=== PATIENT | female | born 1945 | race Caucasian/White ===

== ENCOUNTER → 2017-09-15 | Outpatient (CLI) | payer MEDICARE ==
--- NOTE | 2017-09-15 16:50 | US ---
EXAMINATION TYPE: US venous doppler duplex LE LT DATE OF EXAM: 09/15/2017 4:27 PM COMPARISON: NONE CLINICAL HISTORY: Left Lower Ext, R22.41 Swelling. SIDE PERFORMED: left TECHNIQUE: The lower extremity deep venous system is examined utilizing real time linear array sonog braden with graded compression, doppler sonography and color-flow sonography. VESSELS IMAGED: External Iliac Vein (EIV) Common Femoral Vein Deep Femoral Vein Greater Saphenous Vein * Femoral Vein Popliteal Vein Small Saphenous Vein * Proximal Calf Veins (* superficial vessels) Patient of large body habitus with moderate leg swelling, technically difficult study. Right Leg: Negative for DVT Left Leg: Negative for DVT IMPRESSION: Within the limits of the exam there is no evidence of deep venous thrombosis in both legs .
== END | disposition home or self-care (01) ==
LOC: RADUSWWP 16:00
PROVIDERS: ATTEND Family Medicine
DX: R22.41 Localized swelling, mass and lump, right lower limb (principal)

== ENCOUNTER → 2017-10-09 | Outpatient (CLI) | payer MEDICARE ==
--- NOTE | 2017-10-09 15:30 | US ---
Left Leg: LOWER EXTREMITY VENOUS INSUFFICIENCY SIDE PERFORMED: Left 1) Color flow is present and patency is documented in the following vessels. No DVT or SVT is noted . EIV Common Femoral Vein Deep Femoral Vein Femoral Vein Popliteal Vein Greater Saph Vein Upper Small Saph Vein Grayscale, color doppler, spectral doppler imaging performed of the deep veins of the left lower extr emity. There is normal flow, compressibility, vascular waveforms. 2) There is venous reflux noted at the following venous levels: Deep femoral vein Mid and Dist femoral vein Mid popiteal vein Small saphenous vein IMPRESSION: 1. No sonographic evidence of deep or superficial venous thrombosis within the left lower extremity. 2. Venous reflux noted within the deep femoral vein, mid and distal femoral vein, mid popliteal vein and small saphenous vein.
== END | disposition home or self-care (01) ==
LOC: RADUSWWP 13:50
PROVIDERS: ATTEND Family Medicine
DX: I87.2 Venous insufficiency (chronic) (peripheral) (principal); R22.42 Localized swelling, mass and lump, left lower limb
CPT/HCPCS: 93923

== ENCOUNTER 2017-12-01 10:01 | Day surgery (SDC) | payer MEDICARE ==
[2017-11-28 12:13] VITALS: BMI 35.2
[~2017-12-01 10:01] MED LIST: LACTATED RINGERS 1,000 ML IV SCH
[2017-12-01 10:22] VITALS: TEMP 98.5
[2017-12-01] MEDS ORDERED: PROPOFOL 10 MG/ML 20 ML VIAL IV ONE (11:05)
[2017-12-01] MEDS ORDERED: HYDROmorphone (PF) 1 MG/ML ONE (11:05)
[2017-12-01] MEDS ORDERED: IV FLUID CONTINUATION 1,000 ML IV ONE (11:18)
--- NOTE | 2017-12-01 11:20 | P.PCN ---
Date of Procedure: 12/01/17 Procedure(s) Performed: BRIEF HISTORY: Patient is a 71-year-old, pleasant, female, scheduled for an upper endoscopy as a part of evaluation of intermittent dysphagia to solids for the last 6 months duration. She is hence scheduled for an upper endoscopy with possible dilation. PROCEDURE PERFORMED: Esophagogastroduodenoscopy with dilation. PREOPERATIVE DIAGNOSIS: Progressive dysphagia to solids for the last 6 months duration. IV sedation per anesthesia. PROCEDURE: After informed consent was obtained, the patient was brought into the endoscopy unit. IV sedation was administered by Anesthesia under continuous monitoring. Initially the Olympus GIF-140 video endoscope was inserted into the mouth. Esophagus intubated without any difficulty. It was gradually advanced into the stomach and duodenum and carefully examined. The bulb and the second part of the duodenum appeared normal. The scope at this time was withdrawn to the stomach, adequately insufflated with air, and upon careful examination, mucosa of the antrum, body, cardia and the fundus appeared normal. The scope was then withdrawn into the esophagus. The GE junction was located at 39 cm from the incisors. Small hiatal hernia noted. There was a distal esophageal stricture identified and this was dilated using 12 and 13.5 mm TTS balloon for 60 seconds. There are multiple linear erosions or ulcerations in the distal esophagus consistent with LA grade B reflux esophagitis. Rest of the esophagus appeared normal and the patient tolerated the procedure well. T IMPRESSION: 1. Distal esophageal stricture status post balloon dilation using 12 and 13.5 mm TTS balloon as described above. 2. Multiple linear erosions or ulcerations in the distal esophagus consistent with LA grade D reflux esophagitis. RECOMMENDATIONS: The findings of this examination were discussed with the patient as well as a family. She'll be started on Prilosec 20 mg twice daily half hour before breakfast and dinnertime and follow antireflux measures. She' ll be seen in the office in 6 weeks..
[2017-12-01] MEDS ORDERED: KETOROLAC 30 MG/ML 1 ML VIAL IVP ONE (12:00)
[2017-12-01 12:10] VITALS: RESP 18
[2017-12-01] MEDS ORDERED: LABETALOL 5 MG/ML VIAL MDV IVP PRN (12:28)
[2017-12-01] MEDS ORDERED: LABETALOL 5 MG/ML VIAL MDV IVP ONE (12:38)
[2017-12-01 12:42] VITALS: BP 162/82; PULSE 68
== END 2017-12-01 12:56 | disposition home or self-care (01) ==
LOC: ORWHC2ENDO 10:01
PROVIDERS: ATTEND Internal Medicine Gastroenterology
DX: K22.2 Esophageal obstruction (principal); K44.9 Diaphragmatic hernia without obstruction or gangrene; K21.0 Gastro-esophageal reflux disease with esophagitis
CPT/HCPCS: 43249; J1885; J1170; J2704; C1726; 45386

== ENCOUNTER 2019-12-04 08:35 | Day surgery (SDC) | payer MEDICARE ==
[2019-11-29 15:37] VITALS: BMI 34.3
[2019-12-04 08:51] VITALS: TEMP 96.7
[2019-12-04] MEDS ORDERED: PROPOFOL 10 MG/ML 20 ML VIAL IV ONE (09:28)
--- NOTE | 2019-12-04 09:47 | P.PCN ---
Date of Procedure: 12/04/19 Procedure(s) Performed: BRIEF HISTORY: Patient is a 73-year-old pleasant white female scheduled for an elective colonoscopy as a part of screening for colorectal neoplasia. PROCEDURE PERFORMED: Colonoscopy with biopsy. PREOPERATIVE DIAGNOSIS: Screening for colon cancer. IV sedation per Anesthesia. PROCEDURE: After informed consent was obtained, the patient, was brought into the endoscopy unit. IV sedation was administered by Anesthesia under continuous monitoring. Digital rectal examination was normal. Initially the Olympus CF-160 flexible video colonoscope was then inserted in the rectum, gradually advanced into the cecum without any difficulty. Careful examination was performed as the scope was gradually being withdrawn. Ileocecal valve and the appendiceal orifice were visualized and appeared normal. Prep was excellent. Mucosa of the cecum, ascending colon, transverse colon, descending colon appeared normal. In the sigmoid colon at 22 cm from the anal was a focal area of colitis or mucosal erythema and friability noted and biopsies were done from this area to rule out sigmoid diverticulitis. Rest of the, sigmoid colon, and rectum appeared normal. On the differential diverticulosis seen. Retroflexion was performed in the rectum and no lesions were seen. The patient tolerated the procedure well. IMPRESSION: 1. Focal area of of colitis noted in the sigmoid colon with mucosal friability and erythema status post biopsy to rule out acute diverticulitis 2. Left sided diverticulosis RECOMMENDATIONS: Findings of this examination were discussed with the patient as well as a family. She was advised to follow with the biopsy results. She can have a repeat screening colonoscopy in 10 years.
[2019-12-04 09:50] VITALS: RESP 16
[2019-12-04 10:07] VITALS: BP 149/85; PULSE 87
== END 2019-12-04 10:28 | disposition home or self-care (01) ==
LOC: ORWHC2ENDO 08:35
PROVIDERS: ATTEND Internal Medicine Gastroenterology
DX: Z12.11 Encounter for screening for malignant neoplasm of colon (principal); K52.9 Noninfective gastroenteritis and colitis, unspecified; K57.30 Diverticulosis of large intestine without perforation or abscess without bleeding; K21.9 Gastro-esophageal reflux disease without esophagitis; Z79.899 Other long term (current) drug therapy; Z97.2 Presence of dental prosthetic device (complete) (partial)
CPT/HCPCS: 88305; 45380; J2704

== ENCOUNTER 2022-05-15 15:46 | Emergency (ER) | payer MEDICARE ==
[2022-05-15] MEDS ORDERED: ACETAMINOPHEN TAB 500 MG TAB PO STA (16:05)
--- NOTE | 2022-05-15 16:11 | ED ---
General Adult HPI - General Chief complaint: Shortness of Breath Stated complaint: Fever Time Seen by Provider: 05/15/22 15:49 Source: patient, RN notes reviewed Mode of arrival: EMS Limitations: no limitations - History of Present Illness Initial comments: Patient is a pleasant 76-year-old female presenting to the emergency department with concerns with fever. Onset was this morning. Patient does have mild left abdominal discomfort over the past couple of days. Patient does feel short of breath. Patient took Tylenol around 10 AM. No cough. No congestion. No history of similar symptoms previously. No dysuria. - Related Data Home Medications Medication Instructions Recorded Confirmed Fish Oil/Dha/Epa [Fish Oil 1,200 1 cap PO DAILY 11/28/17 05/15/22 mg Fish Oil] Multivitamins, Thera [Multivitamin 1 tab PO DAILY 11/28/17 05/15/22 (formulary)] Cholecalciferol [Vitamin D3 (25 50 mcg PO DAILY 05/15/22 05/15/22 Mcg = 1000 Iu)] Cyanocobalamin [Vitamin B-12] 500 mcg PO DAILY 05/15/22 05/15/22 Ibuprofen/Acetaminophen [Advil 2 tab PO BID PRN 05/15/22 05/15/22 Dual Action 250Mg-125Mg] Omeprazole Magnesium [PriLOSEC OTC] 20 mg PO DAILY 05/15/22 05/15/22 Previous Rx's Medication Instructions Recorded Nitrofurantoin Monohyd/M-Cryst 100 mg PO Q12HR #14 cap 05/15/22 [Macrobid] Allergies Allergy/AdvReac Type Severity Reaction Status Date / Time No Known Allergies Allergy Verified 05/15/22 15:55 Review of Systems ROS Statement: Those systems with pertinent positive or pertinent negative responses have been documented in the HPI. ROS Other: All systems not noted in ROS Statement are negative. Constitutional: Denies: fever Eyes: Denies: eye pain ENT: Denies: ear pain Respiratory: Reports: as per HPI. Denies: cough Cardiovascular: Denies: chest pain Endocrine: Reports: fatigue Gastrointestinal: Reports: as per HPI Genitourinary: Denies: dysuria Musculoskeletal: Denies: back pain Skin: Denies: rash Past Medical History Past Medical History: GERD/Reflux, Osteoarthritis (OA) Additional Past Medical History / Comment(s): hx of dysphagia History of Any Multi-Drug Resistant Organisms: None Reported Past Surgical History: Hysterectomy, Orthopedic Surgery Additional Past Surgical History / Comment(s): Colonoscopy, egd with dilation Past Anesthesia/Blood Transfusion Reactions: Previous Problems w/ Anesthesia Additional Past Anesthesia/Blood Transfusion Reaction / Comment(s): states "my B /P went high after my EGD" Past Psychological History: No Psychological Hx Reported Past Alcohol Use History: Rare Past Drug Use History: None Reported - Past Family History Father Family Medical History: Cancer Additional Family Medical History / Comment(s): Prostate CA General Exam Limitations: no limitations General appearance: alert, in no apparent distress Head exam: Present: normocephalic Eye exam: Present: normal appearance ENT exam: Present: normal exam Neck exam: Present: normal inspection Respiratory exam: Present: normal lung sounds bilaterally Cardiovascular Exam: Present: regular rate, normal rhythm GI/Abdominal exam: Present: soft, tenderness (Mild left lower quadrant tenderness to palpation). Absent: distended Extremities exam: Present: normal inspection. Absent: pedal edema, calf tenderness Neurological exam: Present: alert Psychiatric exam: Present: normal affect, normal mood Skin exam: Present: normal color Course Vital Signs 05/15/22 05/15/22 05/15/22 15:51 18:04 19:28 Temperature 99.9 F H 98.8 F 98.7 F Pulse Rate 105 H 92 82 Respiratory 22 20 16 Rate Blood Pressure 144/76 140/85 135/83 O2 Sat by Pulse 96 96 96 Oximetry EKG Findings - EKG Results: EKG: interpreted by ERMD (Left axis. Septal Q waves.), sinus rhythm, normal ST/T Medical Decision Making - Medical Decision Making Patient reevaluated and feeling much better. Patient family updated on results and need for follow-up. - Lab Data Result diagrams: 05/15/22 16:28 05/15/22 16:28 Lab Results 05/15/22 05/15/22 05/15/22 Range/Units 16:28 16:28 16:28 WBC 13.5 H (3.8-10.6) k/uL RBC 3.97 (3.80-5.40) m/uL Hgb 12.7 (11.4-16.0) gm/dL Hct 36.4 (34.0-46.0) % MCV 91.8 (80.0-100.0) fL MCH 32.0 (25.0-35.0) pg MCHC 34.9 (31.0-37.0) g/dL RDW 12.3 (11.5-15.5) % Plt Count 209 (150-450) k/uL MPV 8.7 Neutrophils % 93 % Lymphocytes % 2 % Monocytes % 3 % Eosinophils % 0 % Basophils % 0 % Neutrophils # 12.5 H (1.3-7.7) k/uL Lymphocytes # 0.3 L (1.0-4.8) k/uL Monocytes # 0.5 (0-1.0) k/uL Eosinophils # 0.0 (0-0.7) k/uL Basophils # 0.0 (0-0.2) k/uL PT (9.0-12.0) sec INR (<1.2) APTT (22.0-30.0) sec D-Dimer (<0.60) mg/L FEU Sodium 134 L (137-145) mmol/L Potassium 3.2 L (3.5-5.1) mmol/L Chloride 103 (98-107) mmol/L Carbon Dioxide 22 (22-30) mmol/L Anion Gap 9 mmol/L BUN 17 (7-17) mg/dL Creatinine 0.77 (0.52-1.04) mg/dL Est GFR (CKD-EPI)AfAm 87 (>60 ml/min/1.73 sqM) Est GFR (CKD-EPI)NonAf 76 (>60 ml/min/1.73 sqM) Glucose 160 H (74-99) mg/dL Plasma Lactic Acid Elias 1.2 (0.7-2.0) mmol/L Calcium 8.1 L (8.4-10.2) mg/dL Total Bilirubin 0.8 (0.2-1.3) mg/dL AST 24 (14-36) U/L ALT 24 (4-34) U/L Alkaline Phosphatase 95 (38-126) U/L Troponin I (0.000-0.034) ng/mL NT-Pro-B Natriuret Pep pg/mL Total Protein 6.0 L (6.3-8.2) g/dL Albumin 3.2 L (3.5-5.0) g/dL Urine Color Urine Appearance (Clear) Urine pH (5.0-8.0) Ur Specific [place] (1.001-1.035) Urine Protein (Negative) Urine Glucose (UA) (Negative) Urine Ketones (Negative) Urine Blood (Negative) Urine Nitrite (Negative) Urine Bilirubin (Negative) Urine Urobilinogen (<2.0) mg/dL Ur Leukocyte Esterase (Negative) Urine RBC (0-5) /hpf Urine WBC (0-5) /hpf Urine WBC Clumps (None) /hpf Urine Mucus (None) /hpf Coronavirus (PCR) (Not Detectd) Influenza Type A RNA (Not Detectd) Influenza Type B (PCR) (Not Detectd) 05/15/22 05/15/22 05/15/22 Range/Units 16:28 16:28 16:28 WBC (3.8-10.6) k/uL RBC (3.80-5.40) m/uL Hgb (11.4-16.0) gm/dL Hct (34.0-46.0) % MCV (80.0-100.0) fL MCH (25.0-35.0) pg MCHC (31.0-37.0) g/dL RDW (11.5-15.5) % Plt Count (150-450) k/uL MPV Neutrophils % % Lymphocytes % % Monocytes % % Eosinophils % % Basophils % % Neutrophils # (1.3-7.7) k/uL Lymphocytes # (1.0-4.8) k/uL Monocytes # (0-1.0) k/uL Eosinophils # (0-0.7) k/uL Basophils # (0-0.2) k/uL PT (9.0-12.0) sec INR (<1.2) APTT (22.0-30.0) sec D-Dimer (<0.60) mg/L FEU Sodium (137-145) mmol/L Potassium (3.5-5.1) mmol/L Chloride (98-107) mmol/L Carbon Dioxide (22-30) mmol/L Anion Gap mmol/L BUN (7-17) mg/dL Creatinine (0.52-1.04) mg/dL Est GFR (CKD-EPI)AfAm (>60 ml/min/1.73 sqM) Est GFR (CKD-EPI)NonAf (>60 ml/min/1.73 sqM) Glucose (74-99) mg/dL Plasma Lactic Acid Elias (0.7-2.0) mmol/L Calcium (8.4-10.2) mg/dL Total Bilirubin (0.2-1.3) mg/dL AST (14-36) U/L ALT (4-34) U/L Alkaline Phosphatase (38-126) U/L Troponin I 0.021 (0.000-0.034) ng/mL NT-Pro-B Natriuret Pep 1020 pg/mL Total Protein (6.3-8.2) g/dL Albumin (3.5-5.0) g/dL Urine Color Urine Appearance (Clear) Urine pH (5.0-8.0) Ur Specific [place] (1.001-1.035) Urine Protein (Negative) Urine Glucose (UA) (Negative) Urine Ketones (Negative) Urine Blood (Negative) Urine Nitrite (Negative) Urine Bilirubin (Negative) Urine Urobilinogen (<2.0) mg/dL Ur Leukocyte Esterase (Negative) Urine RBC (0-5) /hpf Urine WBC (0-5) /hpf Urine WBC Clumps (None) /hpf Urine Mucus (None) /hpf Coronavirus (PCR) (Not Detectd) Influenza Type A RNA Not Detected (Not Detectd) Influenza Type B (PCR) Not Detected (Not Detectd) 05/15/22 05/15/22 05/15/22 Range/Units 16:28 18:06 19:33 WBC (3.8-10.6) k/uL RBC (3.80-5.40) m/uL Hgb (11.4-16.0) gm/dL Hct (34.0-46.0) % MCV (80.0-100.0) fL MCH (25.0-35.0) pg MCHC (31.0-37.0) g/dL RDW (11.5-15.5) % Plt Count (150-450) k/uL MPV Neutrophils % % Lymphocytes % % Monocytes % % Eosinophils % % Basophils % % Neutrophils # (1.3-7.7) k/uL Lymphocytes # (1.0-4.8) k/uL Monocytes # (0-1.0) k/uL Eosinophils # (0-0.7) k/uL Basophils # (0-0.2) k/uL PT 10.3 (9.0-12.0) sec INR 0.9 (<1.2) APTT 23.3 (22.0-30.0) sec D-Dimer 5.15 H (<0.60) mg/L FEU Sodium (137-145) mmol/L Potassium (3.5-5.1) mmol/L Chloride (98-107) mmol/L Carbon Dioxide (22-30) mmol/L Anion Gap mmol/L BUN (7-17) mg/dL Creatinine (0.52-1.04) mg/dL Est GFR (CKD-EPI)AfAm (>60 ml/min/1.73 sqM) Est GFR (CKD-EPI)NonAf (>60 ml/min/1.73 sqM) Glucose (74-99) mg/dL Plasma Lactic Acid Elias (0.7-2.0) mmol/L Calcium (8.4-10.2) mg/dL Total Bilirubin (0.2-1.3) mg/dL AST (14-36) U/L ALT (4-34) U/L Alkaline Phosphatase (38-126) U/L Troponin I (0.000-0.034) ng/mL NT-Pro-B Natriuret Pep pg/mL Total Protein (6.3-8.2) g/dL Albumin (3.5-5.0) g/dL Urine Color Yellow Urine Appearance Cloudy H (Clear) Urine pH 6.0 (5.0-8.0) Ur Specific [place] 1.026 (1.001-1.035) Urine Protein 2+ H (Negative) Urine Glucose (UA) Negative (Negative) Urine Ketones Trace H (Negative) Urine Blood Small H (Negative) Urine Nitrite Negative (Negative) Urine Bilirubin Negative (Negative) Urine Urobilinogen 2.0 (<2.0) mg/dL Ur Leukocyte Esterase Large H (Negative) Urine RBC 8 H (0-5) /hpf Urine WBC >182 H (0-5) /hpf Urine WBC Clumps Many H (None) /hpf Urine Mucus Rare H (None) /hpf Coronavirus (PCR) Not Detected (Not Detectd) Influenza Type A RNA (Not Detectd) Influenza Type B (PCR) (Not Detectd) - Radiology Data Radiology results: report reviewed (CT chest negative for pulmonary embolism. No airspace disease. CT abdomen and pelvis reveals no acute process) Interpreted by me: Chest x-ray does not reveal acute abnormality Disposition Clinical Impression: Urinary tract infection Disposition: HOME SELF-CARE Condition: Stable Instructions (If sedation given, give patient instructions): Fever in Adults (ED), Urinary Tract Infection in Women (ED) Additional Instructions: Prescription sent to pharmacy. Please do follow-up to primary care physician in the next day or 2 for recheck. Return for uncontrolled fever, difficulty breathing, pain, worsening symptoms or other concerns. Prescriptions: Nitrofurantoin Monohyd/M-Cryst [Macrobid] 100 mg PO Q12HR #14 cap Is patient prescribed a controlled substance at d/c from ED?: No Referrals: Mellissa Evans DO [Primary Care Provider] - 1-2 days Time of Disposition: 20:38
[2022-05-15 16:49] LABS: Basophils % (A) 0 %; Eosinophils % (A) 0 %; HCT 36.4 % (34.0-46.0); HGB 12.7 gm/dL (11.4-16.0); Lymphocytes # (A) 0.3 k/uL (1.0-4.8); Lymphocytes % (A) 2 %; MCHC 34.9 g/dL (31.0-37.0); MCV 91.8 fL (80.0-100.0); Mean Platelet Volume 8.7; Monocytes # (A) 0.5 k/uL (0-1.0); Monocytes % (A) 3 %; Neutrophils # (A) 12.5 k/uL (1.3-7.7); Neutrophils % (A) 93 %; Platelet Count 209 k/uL (150-450); RBC 3.97 m/uL (3.80-5.40); RDW 12.3 % (11.5-15.5); WBC 13.5 k/uL (3.8-10.6)
--- NOTE | 2022-05-15 16:57 | XR ---
EXAMINATION TYPE: XR chest 2V DATE OF EXAM: 05/15/2022 COMPARISON: NONE HISTORY: Fever and short of breath TECHNIQUE: 2 views FINDINGS: There is no heart failure nor confluent pneumonic infiltrate. Costophrenic angles are clear . Ureters atheromatous. Bony thorax is intact. IMPRESSION: Atheromatous aorta. No active cardiopulmonary disease. Normal heart.
[2022-05-15 17:03] LABS: Albumin 3.2 g/dL (3.5-5.0); Calcium 8.1 mg/dL (8.4-10.2); Potassium 3.2 mmol/L (3.5-5.1); Total Bilirubin 0.8 mg/dL (0.2-1.3)
[2022-05-15 18:43] LABS: INR 0.9 (<1.2); Partial Thromboplastin Time 23.3 sec (22.0-30.0); Prothrombin Time 10.3 sec (9.0-12.0)
--- NOTE | 2022-05-15 19:41 | CT ---
EXAMINATION TYPE: CT angio chest DATE OF EXAM: 05/15/2022 COMPARISON: None HISTORY: SOB and Elevated D-dimer CT DLP: 1756.3 mGycm Automated exposure control for dose reduction was used. CONTRAST: Performed with IV Contrast, patient injected with 100cc mL of Isovue 370. There are Three-D postprocessed images. The lungs are clear of consolidation. No evidence of a pulmon marcio mass. No mediastinal adenopathy. There are no hilar masses. There is normal contrast opacificatio n of the pulmonary arteries. No filling defect. Thoracic aorta is intact. No aneurysm. The thoracic s pine is intact. There is L1 anterior wedging 20% which appears old. No evidence of rib fracture. Shou lder joints are intact. There is minimal linear density at the lung bases consistent with subsegmenta l atelectasis. IMPRESSION: No evidence of pulmonary embolism.
--- NOTE | 2022-05-15 19:50 | CT ---
EXAMINATION TYPE: CT abdomen pelvis w con DATE OF EXAM: 05/15/2022 COMPARISON: 10/11/2014 HISTORY: Fever CT DLP: 1756.3 mGycm Automated exposure control for dose reduction was used. CONTRAST: Performed with IV Contrast, patient injected with 100cc mL of Isovue 370. Images obtained from the diaphragm to the floor the pelvis with the IV contrast. The lung bases show mild subsegmental atelectasis in the left lower lobe. No pleural effusion. Heart size is normal. No pericardial effusion. Liver spleen stomach pancreas appear intact. Gallbladder is intact. The bile duct are not dilated. There is 3 cm low-density left adrenal mass. Kidneys show satisfactory contrast opacification. No hyd ronephrosis. There is 1 cm cortical cyst upper pole left kidney. Ureters are not dilated. No retroper itoneal adenopathy. Appendix is lateral and appears normal. There is large lower anterior abdominal w all ventral hernia containing multiple loops of bowel. There is no inguinal hernia. No free fluid in the pelvis. There are multiple sigmoid diverticula. No diverticulitis. The lumbar vertebra show normal alignment. There is T12 compression deformity with 20% wedging that a ppears old. There is atheromatous changes in the abdominal aorta and the branches. There is no mesent olayinka edema. No ascites or free air. No sign of a bowel obstruction. IMPRESSION: Large ventral hernia without change. Colonic diverticulosis without diverticulitis. Normal appendix.
[2022-05-15] MEDS ORDERED: POTASSIUM CHLORIDE ER 20 MEQ TAB.ER PO STA (20:01)
[2022-05-15 20:27] LABS: Appearance,Urine Cloudy (Clear); Bilirubin,Urine Negative (Negative); Blood,Urine Small (Negative); Color,Urine Yellow; Glucose,Urine (UA) Negative (Negative); Ketones,Urine Trace (Negative); Leukocyte Esterase,Urine Large (Negative); Mucus,Urine Rare /hpf; Nitrite,Urine Negative (Negative); Protein,Urine 2+ (Negative); RBC,Urine 8 /hpf (0-5); Specific Gravity,Urine 1.026 (1.001-1.035); WBC,Urine >182 /hpf (0-5)
[2022-05-15] MEDS ORDERED: cefTRIAXone IN SWFI 1,000 MG/10 ML SYRINGE IVP STA (20:36)
[2022-05-15 20:57] VITALS: BP 132/80; PULSE 84; RESP 18; TEMP 98.4
== END 2022-05-15 20:57 | disposition home or self-care (01) ==
LOC: EC 15:46
DX: N39.0 Urinary tract infection, site not specified (principal); M19.90 Unspecified osteoarthritis, unspecified site; K21.9 Gastro-esophageal reflux disease without esophagitis; F17.290 Nicotine dependence, other tobacco product, uncomplicated; Z79.83 Long term (current) use of bisphosphonates; Z79.1 Long term (current) use of non-steroidal anti-inflammatories (NSAID); Z20.822 Contact with and (suspected) exposure to COVID-19; Z79.899 Other long term (current) drug therapy
CPT/HCPCS: 99285; 96374; 36415; 93005; 85379; 83880; 80053; 83605; 84484; 85025; 85610; 85730; 81001; 87040; 87086; 87502; 87635; 71046; 71275; 74177; J0696; Q9967; 87077; 87186

== ENCOUNTER 2024-01-05 10:16 | Inpatient (IN) | payer MEDICARE ==
[2024-01-05 12:02] LABS: Basophils % (A) 0 %; Eosinophils % (A) 0 %; HCT 39.2 % (34.0-46.0); HGB 13.6 gm/dL (11.4-16.0); Lymphocytes # (A) 0.8 k/uL (1.0-4.8); Lymphocytes % (A) 8 %; MCH 31.7 pg (25.0-35.0); MCHC 34.8 g/dL (31.0-37.0); MCV 91.3 fL (80.0-100.0); Mean Platelet Volume 6.6; Monocytes # (A) 0.6 k/uL (0-1.0); Monocytes % (A) 6 %; Neutrophils # (A) 8.6 k/uL (1.3-7.7); Neutrophils % (A) 84 %; Platelet Count 279 k/uL (150-450); RBC 4.29 m/uL (3.80-5.40); RDW 12.3 % (11.5-15.5); WBC 10.2 k/uL (3.8-10.6)
[2024-01-05 12:13] LABS: INR 0.9 (<1.2); Prothrombin Time 10.2 sec (10.0-12.5)
[2024-01-05 12:15] LABS: ALT 18 U/L (4-34); AST 31 U/L (14-36); African American GFR (CKD) >90 (>60 ml/min/1.73 sqM); Albumin 4.1 g/dL (3.5-5.0); Alkaline Phosphatase 61 U/L (38-126); Anion Gap 8 mmol/L; Blood Urea Nitrogen 9 mg/dL (7-17); Calcium 8.8 mg/dL (8.4-10.2); Carbon Dioxide 26 mmol/L (22-30); Chloride 81 mmol/L (98-107); Glucose 124 mg/dL (74-99); Non-African American GFR(CKD) 89 (>60 ml/min/1.73 sqM); Potassium 3.4 mmol/L (3.5-5.1); Total Bilirubin 0.8 mg/dL (0.2-1.3); Total Protein 6.7 g/dL (6.3-8.2)
[2024-01-05 12:22] LABS: Sodium 115 mmol/L (137-145)
[2024-01-05] MEDS: SODIUM CHLORIDE 0.9% 500 ML 500 ML IV STA (12:36)
--- NOTE | 2024-01-05 13:15 | CT ---
EXAMINATION TYPE: CT brain ty campos DATE OF EXAM: 01/05/2024 COMPARISON: None HISTORY: Ataxia, multiple falls, head injury. CT DLP: 1365.[address] of the brain was performed. The ventricles, basal cisterns and sulci overlying the cerebral convexities demonstrate mild enlargem ent. There is no evidence for intracranial hemorrhage or sulcal effacement. There is decreased attenuatio n about the periventricular white matter and deep white matter of both cerebral hemispheres, compatib le with chronic small vessel ischemia. No mass effects are seen. If symptoms persist consider MRI. Osseous calvarium is intact. Right frontal scalp hematoma. IMPRESSION: 1. Age related atrophic and chronic small vessel ischemic change without acute intracranial process seen at this time. CT Cervical Spine: Unenhanced CT of the cervical spine was performed with bone and soft tissue window settings submitted . Coronal and sagittal reconstruction is obtained. There is normal alignment and prevertebral soft tissues. No evidence for acute cervical fracture . Scattered degenerative disc disease and spondylosis. Biapical scarring. Patient motion limits portio ns of the study. IMPRESSION: 1. No evidence for acute fracture or subluxation of the cervical spine.
[2024-01-05 13:21] LABS: Appearance,Urine Clear (Clear); Bilirubin,Urine Negative (Negative); Blood,Urine Negative (Negative); Color,Urine Colorless; Glucose,Urine (UA) Negative (Negative); Ketones,Urine Negative (Negative); Leukocyte Esterase,Urine Negative (Negative); Nitrite,Urine Negative (Negative); Protein,Urine Negative (Negative); Specific Gravity,Urine 1.006 (1.001-1.035); Urobilinogen,Urine <2.0 mg/dL (<2.0)
--- NOTE | 2024-01-05 13:22 | CT ---
EXAMINATION TYPE: CT angio head neck DATE OF EXAM: 01/05/2024 COMPARISON: None HISTORY: Ataxia, multiple falls, head injury. No prior DLP 1365.[address] DLP: 411 mGycm CONTRAST: Performed with IV Contrast, patient injected with 65 mL of Isovue 370. Combination Contrast CTA cervical carotids and [place] CTA cervical carotids with 3-D recons truction Contrast CTA of the cervical carotids was performed 3-D reconstruction imaging obtained at a separate workstation. Right carotid system: Mild plaque is seen of the right common carotid artery. There is mild plaque a lso noted at the carotid bulb and proximal ICA. 50% diameter reduction suggested. ECA is patent. R ight vertebral artery appears unremarkable. Left carotid system: Mild plaque is seen of the left common carotid artery. There is mild plaque als o noted at the carotid bulb and proximal ICA. No significant diameter reduction. ECA is patent. Lef t vertebral artery appears unremarkable. IMPRESSION: 1. Bilateral carotid plaque disease. Right Internal carotid artery demonstrates approximate 50% diame ter reduction. CTA [place] with 3-D reconstruction Contrast CTA of the [place] was performed 3-D reconstruction imaging obtained at a separate workstation. Vertebrobasilar system as well as intracranial portions of the internal carotid arteries and their ma isabella tributaries are patent. I do not see evidence for sizable aneurysm or vascular malformation. Pl ease note MRI provides greater sensitivity and specificity. Visualized brain appears grossly unremar kable. IMPRESSION: 1. No siginificant abnormality. NASCET criteria was used in interpretation of this exam?
--- NOTE | 2024-01-05 14:16 | ED ---
General Adult HPI - General Chief complaint: Fall Stated complaint: Dizziness Time Seen by Provider: 01/05/24 10:20 Source: patient Mode of arrival: EMS - History of Present Illness Initial comments: 78 year old female presents to the emergency Department with multiple falls. Brandon sin states for the past week she has been extremely off balance. This led to a fall with head injury on Monday. Patient struck the right side of her face. She knows consciousness. She is not on blood thinners. Patient is experiencing a black eye. She denies headaches or visual changes. No vertiginous symptoms. Denies lightheadedness. Reports that her symptoms are worse upon standing. No chest pain or difficulty breathing. No recent medication changes. No history of similar. No other alleviating, visiting offing factors - Related Data Home Medications Medication Instructions Recorded Confirmed Cyanocobalamin [Vitamin B-12] 500 mcg PO DAILY 05/15/22 01/05/24 Citalopram Hydrobromide [CeleXA] 20 mg PO DAILY 01/05/24 01/05/24 Ibuprofen [Advil] 400 mg PO BID 01/05/24 01/05/24 Multivit-Min/FA/Lycopen/Lutein 1 tab PO DAILY 01/05/24 01/05/24 [Centrum Silver Tablet] Omeprazole 20 mg PO DAILY 01/05/24 01/05/24 Vitamin D3/Vitamin K2 (Mk4) 1 tab PO DAILY 01/05/24 01/05/24 [Vitamin K2 Plus D3 Tablet] Previous Rx's Medication Instructions Recorded Losartan [Cozaar] 50 mg PO DAILY #30 tab 01/08/24 amLODIPine [Norvasc] 10 mg PO DAILY #30 tab 01/08/24 Allergies Allergy/AdvReac Type Severity Reaction Status Date / Time No Known Allergies Allergy Verified 01/05/24 13:51 Review of Systems ROS Statement: Those systems with pertinent positive or pertinent negative responses have been documented in the HPI. ROS Other: All systems not noted in ROS Statement are negative. Past Medical History Past Medical History: GERD/Reflux, Osteoarthritis (OA) Additional Past Medical History / Comment(s): hx of dysphagia History of Any Multi-Drug Resistant Organisms: None Reported Past Surgical History: Hysterectomy, Orthopedic Surgery Additional Past Surgical History / Comment(s): Colonoscopy, egd with dilation Past Anesthesia/Blood Transfusion Reactions: Previous Problems w/ Anesthesia Additional Past Anesthesia/Blood Transfusion Reaction / Comment(s): states "my B/P went high after my EGD" Past Psychological History: Anxiety Smoking Status: Former smoker Past Alcohol Use History: Rare Past Drug Use History: None Reported - Past Family History Father Family Medical History: Cancer Additional Family Medical History / Comment(s): Prostate CA General Exam General appearance: alert, in no apparent distress Head exam: Present: normocephalic Eye exam: Present: PERRL, EOMI, other (ecchymosis around the right eye). Absent: scleral icterus, conjunctival injection, periorbital swelling ENT exam: Present: normal exam, mucous membranes moist Neck exam: Present: normal inspection. Absent: tenderness, meningismus, lymphadenopathy Respiratory exam: Present: normal lung sounds bilaterally. Absent: respiratory distress, wheezes, rales, rhonchi, stridor Cardiovascular Exam: Present: regular rate, normal rhythm, normal heart sounds. Absent: systolic murmur, diastolic murmur, rubs, gallop, clicks GI/Abdominal exam: Present: soft, normal bowel sounds. Absent: distended, tenderness, guarding, rebound, rigid Extremities exam: Present: normal inspection, full ROM, normal capillary refill. Absent: tenderness, pedal edema, joint swelling, calf tenderness Back exam: Present: normal inspection Neurological exam: Present: alert, oriented X3, CN II-XII intact Psychiatric exam: Present: normal affect, normal mood Skin exam: Present: warm, dry, intact, normal color. Absent: rash Course Vital Signs 01/05/24 01/05/24 01/05/24 10:19 10:28 12:00 Temperature 98.2 F Pulse Rate 83 Pulse Rate [ 85 Pulse Oximetery ] Respiratory 20 Rate Blood Pressure 169/94 Blood Pressure [Right Arm Standing] Blood Pressure 180/90 [Right Arm Supine] O2 Sat by Pulse 96 Oximetry 01/05/24 01/05/24 01/05/24 12:02 14:00 18:41 Temperature Pulse Rate 82 84 Pulse Rate [ 82 Pulse Oximetery ] Respiratory 20 20 Rate Blood Pressure 156/88 166/78 Blood Pressure 162/84 [Right Arm Standing] Blood Pressure [Right Arm Supine] O2 Sat by Pulse 98 98 Oximetry Procedures - Abie Protocol (Time Out) Nurse: Hanane Marques Medical Decision Making - Medical Decision Making Was pt. sent in by a medical professional or institution (, PA, TOOL SHAPER SET UP OPERATOR, urgent care, hospital, or skilled nursing...) When possible be specific @ -No Did you speak to anyone other than the patient for history (EMS, parent, family, police, friend...)? What history was obtained from this source @ -I spoke with the son for history Did you review nursing and triage notes (agree or disagree)? Why? @ -I reviewed and agree with nursing and triage notes Were old charts reviewed (outside hosp., previous admission, EMS record, old EKG, old radiological studies, urgent care reports/EKG's, skilled nursing records)? Report findings @ -No old charts were reviewed Differential Diagnosis (chest pain, altered mental status, abdominal pain women, abdominal pain men, vaginal bleeding, weakness, fever, dyspnea, syncope, headache, dizziness, GI bleed, back pain, seizure, CVA, palpatations, mental health, musculoskeletal)? @ -hypogylcemia, hyponatremia, mi, cva EKG interpreted by me (3pts min.). @ -yes and demonstrates sinus rhythm with rate of 80. AL interval 165. QRS 110. QTC of 434. No diffuse ST segment elevations or depressions X-rays interpreted by me (1pt min.). @ -yes and demonstrates no acute process CT interpreted by me (1pt min.). @ -yes and demonstrates no cva signs U/S interpreted by me (1pt. min.). @ -None done What testing was considered but not performed or refused? (CT, X-rays, U/S, labs)? Why? @ -None What meds were considered but not given or refused? Why? @ -None Did you discuss the management of the patient with other professionals (professionals i.e. , BRANDON, TOOL SHAPER SET UP OPERATOR, lab, RT, psych nurse, perinatal social worker, cullet crusher, teacher, fare enforcement officer, field nurse case manager)? Give summary @ -Spoke with Dr. Mahoney from nephrology. Also spoke with Dr. Keith for admission Was smoking cessation discussed for >3mins.? @ -No Was critical care preformed (if so, how long)? @ -No Were there social determinants of health that impacted care today? How? (Homelessness, low income, unemployed, alcoholism, drug addiction, transportation, low edu. Level, literacy, decrease access to med. care, [place] [facility], rehab)? @ -No Was there de-escalation of care discussed even if they declined (Discuss DNR or withdrawal of care, Hospice)? DNR status @ -No What co-morbidities impacted this encounter? (DM, HTN, Smoking, COPD, CAD, Cancer, CVA, ARF, Chemo, Hep., AIDS, mental health diagnosis, sleep apnea, morbid obesity)? @ -Hypertension Was patient admitted / discharged? Hospital course, mention meds given and route, prescriptions, significant lab abnormalities, going to OR and other pertinent info. @ -Upon arrival patient seen and evaluated in room 7. Thorough history and physical exam was performed. IV access was established. Laboratory studies were conducted. Laboratory studies do demonstrate a sodium of 115. CT brain and chest x-ray are negative. Results were discussed with the patient. She had been given a 500 cc fluid bolus. We will recheck a sodium at this time and discuss results with Dr. Mahoney. Patient will be admitted to Dr. Evans. Patient was agreeable to admission Undiagnosed new problem with uncertain prognosis? @ -No Drug Therapy requiring intensive monitoring for toxicity (Heparin, Nitro, Insulin, Cardizem)? @ -No Were any procedures done? @ -No Diagnosis/symptom? @ -Acute ataxia, multiple falls, acute hyponatremia Acute, or Chronic, or Acute on Chronic? @ -Acute Uncomplicated (without systemic symptoms) or Complicated (systemic symptoms)? @ -Complicated Side effects of treatment? @ -No Exacerbation, Progression, or Severe Exacerbation? @ -No Poses a threat to life or bodily function? How? (Chest pain, [place], [place], pneumonia, PE, COPD, DKA, ARF, appy, cholecystitis, CVA, Diverticulitis, Homicidal, Suicidal, threat to staff... and all critical care pts) @ -Yes as patient has profound hyponatremia - Lab Data Result diagrams: 01/07/24 02:35 01/08/24 07:36 Lab Results 01/05/24 01/05/24 01/05/24 Range/Units 11:46 11:46 11:46 WBC 10.2 (3.8-10.6) k/uL RBC 4.29 (3.80-5.40) m/uL Hgb 13.6 (11.4-16.0) gm/dL Hct 39.2 (34.0-46.0) % MCV 91.3 (80.0-100.0) fL MCH 31.7 (25.0-35.0) pg MCHC 34.8 (31.0-37.0) g/dL RDW 12.3 (11.5-15.5) % Plt Count 279 (150-450) k/uL MPV 6.6 Neutrophils % 84 % Lymphocytes % 8 % Monocytes % 6 % Eosinophils % 0 % Basophils % 0 % Neutrophils # 8.6 H (1.3-7.7) k/uL Lymphocytes # 0.8 L (1.0-4.8) k/uL Monocytes # 0.6 (0-1.0) k/uL Eosinophils # 0.0 (0-0.7) k/uL Basophils # 0.0 (0-0.2) k/uL PT 10.2 (10.0-12.5) sec INR 0.9 (<1.2) Sodium (137-145) mmol/L Potassium (3.5-5.1) mmol/L Chloride (98-107) mmol/L Carbon Dioxide (22-30) mmol/L Anion Gap mmol/L BUN (7-17) mg/dL Creatinine (0.52-1.04) mg/dL Est GFR (CKD-EPI)AfAm (>60 ml/min/1.73 sqM) Est GFR (CKD-EPI)NonAf (>60 ml/min/1.73 sqM) Glucose (74-99) mg/dL Calcium (8.4-10.2) mg/dL Total Bilirubin (0.2-1.3) mg/dL AST (14-36) U/L ALT (4-34) U/L Alkaline Phosphatase (38-126) U/L Troponin I (0.000-0.034) ng/mL Total Protein (6.3-8.2) g/dL Albumin (3.5-5.0) g/dL Urine Color Colorless Urine Appearance Clear (Clear) Urine pH 7.0 (5.0-8.0) Ur Specific [place] 1.006 (1.001-1.035) Urine Protein Negative (Negative) Urine Glucose (UA) Negative (Negative) Urine Ketones Negative (Negative) Urine Blood Negative (Negative) Urine Nitrite Negative (Negative) Urine Bilirubin Negative (Negative) Urine Urobilinogen <2.0 (<2.0) mg/dL Ur Leukocyte Esterase Negative (Negative) 01/05/24 01/05/24 Range/Units 11:46 11:46 WBC (3.8-10.6) k/uL RBC (3.80-5.40) m/uL Hgb (11.4-16.0) gm/dL Hct (34.0-46.0) % MCV (80.0-100.0) fL MCH (25.0-35.0) pg MCHC (31.0-37.0) g/dL RDW (11.5-15.5) % Plt Count (150-450) k/uL MPV Neutrophils % % Lymphocytes % % Monocytes % % Eosinophils % % Basophils % % Neutrophils # (1.3-7.7) k/uL Lymphocytes # (1.0-4.8) k/uL Monocytes # (0-1.0) k/uL Eosinophils # (0-0.7) k/uL Basophils # (0-0.2) k/uL PT (10.0-12.5) sec INR (<1.2) Sodium 115 L* (137-145) mmol/L Potassium 3.4 L (3.5-5.1) mmol/L Chloride 81 L (98-107) mmol/L Carbon Dioxide 26 (22-30) mmol/L Anion Gap 8 mmol/L BUN 9 (7-17) mg/dL Creatinine 0.58 (0.52-1.04) mg/dL Est GFR (CKD-EPI)AfAm >90 (>60 ml/min/1.73 sqM) Est GFR (CKD-EPI)NonAf 89 (>60 ml/min/1.73 sqM) Glucose 124 H (74-99) mg/dL Calcium 8.8 (8.4-10.2) mg/dL Total Bilirubin 0.8 (0.2-1.3) mg/dL AST 31 (14-36) U/L ALT 18 (4-34) U/L Alkaline Phosphatase 61 (38-126) U/L Troponin I 0.018 (0.000-0.034) ng/mL Total Protein 6.7 (6.3-8.2) g/dL Albumin 4.1 (3.5-5.0) g/dL Urine Color Urine Appearance (Clear) Urine pH (5.0-8.0) Ur Specific [place] (1.001-1.035) Urine Protein (Negative) Urine Glucose (UA) (Negative) Urine Ketones (Negative) Urine Blood (Negative) Urine Nitrite (Negative) Urine Bilirubin (Negative) Urine Urobilinogen (<2.0) mg/dL Ur Leukocyte Esterase (Negative) Disposition Clinical Impression: Fall, Blunt head trauma, Hyponatremia Disposition: ADMITTED IP TO THIS [facility] Condition: Stable Is patient prescribed a controlled substance at d/c from ED?: No Time of Disposition: 14:16 Decision to Admit Reason: Admit from EC Decision Date: 01/05/24 Decision Time: 14:16
[2024-01-05] MEDS ORDERED: NALOXONE 0.4 MG/ML 1 ML VIAL IV PRN (14:17)
[2024-01-05 17:17] LABS: Sodium 117 mmol/L (137-145)
[2024-01-05] MEDS: SODIUM CHLORIDE 0.9% 1,000 ML IV SCH (18:11)
[2024-01-05] MEDS: MELATONIN 5 MG TABLET PO SCH (22:34)
[2024-01-05] MEDS: IBUPROFEN 400 MG TAB PO PRN (22:35)
[2024-01-06 04:00] LABS: Basophils % (A) 0 %; Eosinophils # (A) 0.1 k/uL (0-0.7); Eosinophils % (A) 1 %; HCT 36.6 % (34.0-46.0); HGB 12.6 gm/dL (11.4-16.0); Lymphocytes # (A) 1.1 k/uL (1.0-4.8); Lymphocytes % (A) 12 %; MCH 32.4 pg (25.0-35.0); MCHC 34.5 g/dL (31.0-37.0); MCV 94.2 fL (80.0-100.0); Mean Platelet Volume 7.2; Monocytes # (A) 0.8 k/uL (0-1.0); Monocytes % (A) 9 %; Neutrophils # (A) 7.3 k/uL (1.3-7.7); Neutrophils % (A) 77 %; Platelet Count 254 k/uL (150-450); RBC 3.89 m/uL (3.80-5.40); RDW 12.9 % (11.5-15.5); WBC 9.5 k/uL (3.8-10.6)
[2024-01-06 04:11] LABS: African American GFR (CKD) >90 (>60 ml/min/1.73 sqM); Anion Gap 6 mmol/L; Blood Urea Nitrogen 8 mg/dL (7-17); Calcium 8.9 mg/dL (8.4-10.2); Carbon Dioxide 26 mmol/L (22-30); Chloride 87 mmol/L (98-107); Glucose 118 mg/dL (74-99); Non-African American GFR(CKD) 88 (>60 ml/min/1.73 sqM); Potassium 3.4 mmol/L (3.5-5.1)
[2024-01-06 04:30] LABS: Sodium 119 mmol/L (137-145)
[2024-01-06] MEDS: CYANOCOBALAMIN 500 MCG TAB PO SCH (08:22)
[2024-01-06] MEDS: PANTOPRAZOLE 40 MG TABLET PO SCH (08:22)
[2024-01-06] MEDS: CITALOPRAM HYDROBROMIDE 20 MG TAB PO SCH (08:22)
[2024-01-06] MEDS: LOSARTAN 50 MG TAB PO SCH (11:48)
[2024-01-06] MEDS: POTASSIUM CHLORIDE ER 20 MEQ TAB.ER PO STA (11:48)
--- NOTE | 2024-01-06 13:13 | P.NPCON ---
History of Present Illness - Reason for Consult Consult date: 01/06/24 hyponatremia - Chief Complaint Fall - History of Present Illness 78 year old female presents to the emergency Department with multiple falls. Patient states for the past week she has been extremely off balance. This led to a fall with head injury on Monday. Patient struck the right side of her face. She knows consciousness. She is not on blood thinners. Patient is experiencing a black eye. She denies headaches or visual changes. No vertiginous symptoms. Denies lightheadedness. Reports that her symptoms are worse upon standing. No chest pain or difficulty breathing. No recent med ication changes. No history of similar. No other alleviating, visiting offing factors. She does take hydrochlorothiazide at home as part of her BP medications. Has been eating and drinking well. Vital signs are stable. General: No acute distress. HEENT: Head exam is unremarkable. LUNGS: No acute distress. HEART: Rate and Rhythm are regular. ABDOMEN: Nontender. EXTREMITITES: No edema. Review of Systems Constitutional: Reports as per HPI Past Medical History Past Medical History: COPD, GERD/Reflux, Hypertension, Osteoarthritis (OA) Additional Past Medical History / Comment(s): hx of dysphagia History of Any Multi-Drug Resistant Organisms: None Reported Past Surgical History: Hysterectomy, Orthopedic Surgery Additional Past Surgical History / Comment(s): Colonoscopy, egd with dilation Past Anesthesia/Blood Transfusion Reactions: Previous Problems w/ Anesthesia Additional Past Anesthesia/Blood Transfusion Reaction / Comment(s): states "my B/P went high after my EGD" Past Psychological History: Anxiety Smoking Status: Former smoker Past Alcohol Use History: Rare Additional Past Alcohol Use History / Comment(s): Quit smoking 20 years ago Past Drug Use History: None Reported - Past Family History Father Family Medical History: Cancer Additional Family Medical History / Comment(s): Prostate CA Medications and Allergies Home Medications Medication Instructions Recorded Confirmed Type Cyanocobalamin [Vitamin B-12] 500 mcg PO DAILY 05/15/22 01/05/24 History Citalopram Hydrobromide [CeleXA] 20 mg PO DAILY 01/05/24 01/05/24 History Ibuprofen [Advil] 400 mg PO BID 01/05/24 01/05/24 History Losartan/Hydrochlorothiazide 1 tab PO DAILY 01/05/24 01/05/24 History [Hyzaar 100-25 Tablet] Multivit-Min/FA/Lycopen/Lutein 1 tab PO DAILY 01/05/24 01/05/24 History [Centrum Silver Tablet] Omeprazole 20 mg PO DAILY 01/05/24 01/05/24 History Vitamin D3/Vitamin K2 (Mk4) 1 tab PO DAILY 01/05/24 01/05/24 History [Vitamin K2 Plus D3 Tablet] Allergies Allergy/AdvReac Type Severity Reaction Status Date / Time No Known Allergies Allergy Verified 01/05/24 13:51 Physical Exam Vitals: Vital Signs Temp Pulse Pulse Resp BP BP BP 01/06/24 11:26 97.9 F 70 20 167/70 01/06/24 08:00 98 F 74 20 148/66 01/06/24 04:45 97.8 F 81 20 135/71 01/05/24 23:00 82 18 158/83 01/05/24 20:02 72 16 152/69 01/05/24 19:04 86 18 152/65 01/05/24 18:41 84 20 166/78 01/05/24 14:00 82 20 156/88 Pulse Ox 01/06/24 11:26 96 01/06/24 08:00 95 01/06/24 04:45 93 L 01/05/24 23:00 95 01/05/24 20:02 94 L 01/05/24 19:04 96 01/05/24 18:41 98 01/05/24 14:00 98 Intake and Output 01/05/24 01/06/24 01/06/24 22:59 06:59 14:59 Intake Total 240 Output Total 1150 Balance -1150 240 Intake: Oral 240 Output: Urine 1150 Other: Voiding Method External Catheter Bedside Commode # Voids 1 Weight 90.265 kg 84 kg Results - Lab Results Most recent lab results Calcium 8.9 mg/dL (8.4-10.2) 01/06/24 03:32 01/06/24 03:32 01/06/24 12:04 Assessment and Plan Assessment: 1. Hypovolemic hyponatremia related to thiazide use. Na 115-->119-->121 with IVF. Urine osmolality 275, urine sodium pending. 2. Fall with BHT due to hyponatremia 3. Essential HTN Plan: Discontinue HCTZ indefintely Consider amlodipine 5mg if needed for BP support Continue IVF 100cc/hr At goal sodium 127-129 by tomorrow 11am
--- NOTE | 2024-01-06 18:42 | P.HPIM ---
History of Present Illness H&P Date: 01/05/24 Chief Complaint: Dizziness/fall 78 year old female presents to the emergency Department with multiple falls. Patient states for the past week she has been extremely off balance. This led to a fall with head injury on Monday. Patient struck the right side of her face. She knows consciousness. She is not on blood thinners. Patient is experiencing a black eye. She denies headaches or visual changes. No vertiginous symptoms. Denies lightheadedness. Reports that her symptoms are worse upon standing. No chest pain or difficulty breathing. No recent medication changes. No history of similar. No other alleviating, visiting offing factors Blood work completed in ED reveals a WBC of 10.2, hemoglobin of 13.6 and platelet count of 279, sodium 115, potassium 3.4, BUNs/creatinine of 9/0.58 and blood glucose of 124, troponin of 0.018 UA is unremarkable EKG demonstrates sinus rhythm with rate of 80. [place] interval 165. QRS 110. QTC of 434. No diffuse ST segment elevations or depressions Review of Systems REVIEW OF SYSTEMS: CONSTITUTIONAL: No fever, no malaise, no fatigue. HEENT: No recent visual problems or hearing problems. Denied any sore throat. CARDIOVASCULAR: No chest pain, orthopnea, PND, no palpitations, no syncope. PULMONARY: No shortness of breath, no cough, no hemoptysis. GASTROINTESTINAL: No diarrhea, no nausea, no vomiting, no abdominal pain. NEUROLOGICAL: No headaches, no weakness, no numbness. HEMATOLOGICAL: Denies any bleeding or petechiae. GENITOURINARY: Denies any burning micturition, frequency, or urgency. MUSCULOSKELETAL/RHEUMATOLOGICAL: Denies any joint pain, swelling, or any muscle pain. ENDOCRINE: Denies any polyuria or polydipsia. The rest of the 14-point review of systems is negative. Past Medical History Past Medical History: GERD/Reflux, Osteoarthritis (OA) Additional Past Medical History / Comment(s): hx of dysphagia History of Any Multi-Drug Resistant Organisms: None Reported Past Surgical History: Hysterectomy, Orthopedic Surgery Additional Past Surgical History / Comment(s): Colonoscopy, egd with dilation Past Anesthesia/Blood Transfusion Reactions: Previous Problems w/ Anesthesia Additional Past Anesthesia/Blood Transfusion Reaction / Comment(s): states "my B/P went high after my EGD" Past Psychological History: Anxiety Smoking Status: Former smoker Past Alcohol Use History: Rare Past Drug Use History: None Reported - Past Family History Father Family Medical History: Cancer Additional Family Medical History / Comment(s): Prostate CA Medications and Allergies Home Medications Medication Instructions Recorded Confirmed Type Cyanocobalamin [Vitamin B-12] 500 mcg PO DAILY 05/15/22 01/05/24 History Citalopram Hydrobromide [CeleXA] 20 mg PO DAILY 01/05/24 01/05/24 History Ibuprofen [Advil] 400 mg PO BID 01/05/24 01/05/24 History Losartan/Hydrochlorothiazide 1 tab PO DAILY 01/05/24 01/05/24 History [Hyzaar 100-25 Tablet] Multivit-Min/FA/Lycopen/Lutein 1 tab PO DAILY 01/05/24 01/05/24 History [Centrum Silver Tablet] Omeprazole 20 mg PO DAILY 01/05/24 01/05/24 History Vitamin D3/Vitamin K2 (Mk4) 1 tab PO DAILY 01/05/24 01/05/24 History [Vitamin K2 Plus D3 Tablet] Allergies Allergy/AdvReac Type Severity Reaction Status Date / Time No Known Allergies Allergy Verified 01/05/24 13:51 Physical Exam Vitals: Vital Signs Temp Pulse Pulse Resp BP BP BP 01/05/24 12:02 82 162/84 01/05/24 12:00 85 180/90 01/05/24 10:28 98.2 F 01/05/24 10:19 83 20 169/94 Pulse Ox 01/05/24 12:02 01/05/24 12:00 01/05/24 10:28 01/05/24 10:19 96 Intake and Output 01/05/24 01/05/24 01/05/24 06:59 14:59 22:59 Other: Weight 90.265 kg Head exam: Present: normocephalic Eye exam: Present: PERRL, EOMI, other (ecchymosis around the right eye). Absent: scleral icterus, conjunctival injection, periorbital swelling ENT exam: Present: normal exam, mucous membranes moist Neck exam: Present: normal inspection. Absent: tenderness, meningismus, lymphadenopathy Respiratory exam: Present: normal lung sounds bilaterally. Absent: respiratory distress, wheezes, rales, rhonchi, stridor Cardiovascular Exam: Present: regular rate, normal rhythm, normal heart sounds. Absent: systolic murmur, diastolic murmur, rubs, gallop, clicks GI/Abdominal exam: Present: soft, normal bowel sounds. Absent: distended, tenderness, guarding, rebound, rigid Extremities exam: Present: normal inspection, full ROM, normal capillary refill. Absent: tenderness, pedal edema, joint swelling, calf tenderness Back exam: Present: normal inspection Neurological exam: Present: alert, oriented X3, CN II-XII intact Psychiatric exam: Present: normal affect, normal mood Skin exam: Present: warm, dry, intact, normal color. Absent: rash Results CBC & Chem 7: 01/06/24 03:32 01/06/24 12:04 Labs: Abnormal Lab Results - Last 24 Hours (Table) 01/05/24 01/05/24 Range/Units 11:46 11:46 Neutrophils # 8.6 H (1.3-7.7) k/uL Lymphocytes # 0.8 L (1.0-4.8) k/uL Sodium 115 L* (137-145) mmol/L Potassium 3.4 L (3.5-5.1) mmol/L Chloride 81 L (98-107) mmol/L Glucose 124 H (74-99) mg/dL Assessment and Plan Assessment: 1. Critical hyponatremia --Patient received IV normal saline bolus in ED; has been placed on a continuous normal saline drip at rate of 100 cc an hour; will monitor sodium levels every 6 hours -Order serum and urine osmolality and serum and urine sodium levels -Nephrology is consulted 2. Hypokalemia; supplemented in ED; will monitor electrolytes 3. Falls/debility versus related to electrolyte imbalance; supplemented as indicated above; we will consult PT/OT 4. Hypertension; patient takes losartan/hydrochlorothiazide 100-25 mg daily; we will discontinue hydrochlorothiazide; continue with losartan 100 mg daily 5. Vitamin D deficiency; continue current home vitamin D supplement 6. Vitamin B12 deficiency; vitamin B12 500 mcg daily 7. Gastroesophageal reflux disease; omeprazole 20 mg daily 8. Depression; Celexa 20 mg daily DVT prophylaxis; SCDs CODE STATUS; full code
--- NOTE | 2024-01-06 18:43 | P.PN ---
Subjective Progress Note Date: 01/06/24 78 year old female presents to the emergency Department with multiple falls. Patient states for the past week she has been extremely off balance. This led to a fall with head injury on Monday. Patient struck the right side of her face. She knows consciousness. She is not on blood thinners. Patient is experiencing a black eye. She denies headaches or visual changes. No vertiginous symptoms. Denies lightheadedness. Reports that her symptoms are worse upon standing. No chest pain or difficulty breathing. No recent medication changes. No history of similar. No other alleviating, visiting offing factors Blood work completed in ED reveals a WBC of 10.2, hemoglobin of 13.6 and platelet count of 279, sodium 115, potassium 3.4, BUNs/creatinine of 9/0.58 and blood glucose of 124, troponin of 0.018 UA is unremarkable EKG demonstrates sinus rhythm with rate of 80. VT interval 165. QRS 110. QTC of 434. No diffuse ST segment elevations or depressions Objective - Vital Signs Vital signs: Vital Signs Temp 98 F 01/06/24 08:00 Pulse 74 01/06/24 08:00 Resp 20 01/06/24 08:00 BP 148/66 01/06/24 08:00 Pulse Ox 95 01/06/24 08:00 FiO2 Intake & Output 01/05/24 01/06/24 01/06/24 18:59 06:59 18:59 Intake Total 240 Output Total 1150 Balance -1150 240 Weight 90.265 kg 84 kg Intake: Oral 240 Output: Urine 1150 Other: Voiding Method Bedside Commode - Exam Head exam: Present: normocephalic Eye exam: Present: PERRL, EOMI, other (ecchymosis around the right eye). Absent: scleral icterus, conjunctival injection, periorbital swelling ENT exam: Present: normal exam, mucous membranes moist Neck exam: Present: normal inspection. Absent: tenderness, meningismus, lymphadenopathy Respiratory exam: Present: normal lung sounds bilaterally. Absent: respiratory distress, wheezes, rales, rhonchi, stridor Cardiovascular Exam: Present: regular rate, normal rhythm, normal heart sounds. Absent: systolic murmur, diastolic murmur, rubs, gallop, clicks GI/Abdominal exam: Present: soft, normal bowel sounds. Absent: distended, tenderness, guarding, rebound, rigid Extremities exam: Present: normal inspection, full ROM, normal capillary refill. Absent: tenderness, pedal edema, joint swelling, calf tenderness Neurological exam: Present: alert, oriented X3, CN II-XII intact Skin exam: Present: warm, dry, intact, normal color. Absent: rash - Labs CBC & Chem 7: 01/06/24 03:32 01/06/24 12:04 Labs: Abnormal Lab Results - Last 24 Hours (Table) 01/05/24 01/05/24 01/05/24 Range/Units 11:46 11:46 16:48 Neutrophils # 8.6 H (1.3-7.7) k/uL Lymphocytes # 0.8 L (1.0-4.8) k/uL Sodium 115 L* 117 L* (137-145) mmol/L Potassium 3.4 L (3.5-5.1) mmol/L Chloride 81 L (98-107) mmol/L Glucose 124 H (74-99) mg/dL Osmolality 251 L (275-295) mOsm/kg Urine Osmolality (400-1100) mOsm/kg 01/05/24 01/05/24 01/06/24 Range/Units 18:10 18:57 03:32 Neutrophils # (1.3-7.7) k/uL Lymphocytes # (1.0-4.8) k/uL Sodium 119 L* 119 L* (137-145) mmol/L Potassium 3.4 L (3.5-5.1) mmol/L Chloride 87 L (98-107) mmol/L Glucose 118 H (74-99) mg/dL Osmolality (275-295) mOsm/kg Urine Osmolality 272 L (400-1100) mOsm/kg Assessment and Plan Assessment: 1. Critical hyponatremia --Patient received IV normal saline bolus in ED; has been placed on a continuous normal saline drip at rate of 100 cc an hour; will monitor sodium levels every 6 hours -Order serum and urine osmolality and serum and urine sodium levels -Nephrology is consulted 2. Hypokalemia; supplemented in ED; will monitor electrolytes 3. Falls/debility versus related to electrolyte imbalance; supplemented as indicated above; we will consult PT/OT 4. Hypertension; patient takes losartan/hydrochlorothiazide 100-25 mg daily; we will discontinue hydrochlorothiazide; continue with losartan 100 mg daily 5. Vitamin D deficiency; continue current home vitamin D supplement 6. Vitamin B12 deficiency; vitamin B12 500 mcg daily 7. Gastroesophageal reflux disease; omeprazole 20 mg daily 8. Depression; Celexa 20 mg daily DVT prophylaxis; SCDs CODE STATUS; full code
[2024-01-07 03:42] LABS: Basophils % (A) 0 %; Eosinophils # (A) 0.1 k/uL (0-0.7); Eosinophils % (A) 1 %; HCT 36.5 % (34.0-46.0); HGB 12.2 gm/dL (11.4-16.0); Lymphocytes # (A) 1.2 k/uL (1.0-4.8); Lymphocytes % (A) 15 %; MCH 31.1 pg (25.0-35.0); MCHC 33.3 g/dL (31.0-37.0); MCV 93.1 fL (80.0-100.0); Mean Platelet Volume 7.3; Monocytes # (A) 0.6 k/uL (0-1.0); Monocytes % (A) 8 %; Neutrophils # (A) 5.6 k/uL (1.3-7.7); Neutrophils % (A) 72 %; Platelet Count 242 k/uL (150-450); RBC 3.92 m/uL (3.80-5.40); RDW 12.6 % (11.5-15.5); WBC 7.8 k/uL (3.8-10.6)
[2024-01-07 03:55] LABS: African American GFR (CKD) >90 (>60 ml/min/1.73 sqM); Anion Gap 8 mmol/L; Blood Urea Nitrogen 10 mg/dL (7-17); Calcium 8.2 mg/dL (8.4-10.2); Carbon Dioxide 18 mmol/L (22-30); Chloride 97 mmol/L (98-107); Glucose 106 mg/dL (74-99); Non-African American GFR(CKD) >90 (>60 ml/min/1.73 sqM); Sodium 123 mmol/L (137-145)
--- NOTE | 2024-01-07 11:57 | P.PN ---
Subjective Progress Note Date: 01/07/24 Patient seen in follow-up for hyponatremia. Doing well and no new complaints. Sodium up to 126 this morning. Vital signs are stable. General: No acute distress. HEENT: Head exam is unremarkable. LUNGS: No acute distress. HEART: Rate and Rhythm are regular. ABDOMEN: Nontender. EXTREMITITES: No edema. Objective - Vital Signs Vital signs: Vital Signs Temp 97.8 F 01/07/24 11:33 Pulse 76 01/07/24 11:33 Resp 20 01/07/24 11:33 BP 182/75 01/07/24 11:33 Pulse Ox 97 01/07/24 11:33 FiO2 Intake & Output 01/06/24 01/07/24 01/07/24 18:59 06:59 18:59 Intake Total 476 60 Output Total 850 200 Balance 476 -850 -140 Weight 86.7 kg Intake: Oral 476 60 Output: Urine 850 200 Other: Voiding Method Bedside Commode # Voids 1 - Labs CBC & Chem 7: 01/07/24 02:35 01/07/24 07:26 Labs: Abnormal Lab Results - Last 24 Hours (Table) 01/06/24 01/06/24 01/06/24 Range/Units 10:00 12:04 19:42 Sodium 121 L 122 L (137-145) mmol/L Chloride (98-107) mmol/L Carbon Dioxide (22-30) mmol/L Glucose (74-99) mg/dL Calcium (8.4-10.2) mg/dL Ur Random Sodium <20 L (40-220) mmol/L 01/07/24 01/07/24 01/07/24 Range/Units 02:35 02:35 07:26 Sodium 123 L 122 L 126 L (137-145) mmol/L Chloride 97 L (98-107) mmol/L Carbon Dioxide 18 L (22-30) mmol/L Glucose 106 H (74-99) mg/dL Calcium 8.2 L (8.4-10.2) mg/dL Ur Random Sodium (40-220) mmol/L Assessment and Plan Assessment: 1. Hypovolemic hyponatremia related to thiazide use. Na 115-->119-->121 with IVF. Urine osmolality 275, urine sodium pending. 2. Fall with BHT due to hyponatremia 3. Essential HTN Plan: Discontinue HCTZ indefintely Will add amlodipine 5mg for hypertension. Continue IVF 100cc/hr At goal sodium 132-134 by tomorrow 11am
[2024-01-07] MEDS: amLODIPine 5 MG TAB PO SCH (12:25)
--- NOTE | 2024-01-07 14:56 | P.PN ---
Subjective Progress Note Date: 01/07/24 78 year old female presents to the emergency Department with multiple falls. Patient states for the past week she has been extremely off balance. This led to a fall with head injury on Monday. Patient struck the right side of her face. She knows consciousness. She is not on blood thinners. Patient is experiencing a black eye. She denies headaches or visual changes. No vertiginous symptoms. Denies lightheadedness. Reports that her symptoms are worse upon standing. No chest pain or difficulty breathing. No recent medication changes. No history of similar. No other alleviating, visiting offing factors Blood work completed in ED reveals a WBC of 10.2, hemoglobin of 13.6 and platelet count of 279, sodium 115, potassium 3.4, BUNs/creatinine of 9/0.58 and blood glucose of 124, troponin of 0.018 UA is unremarkable EKG demonstrates sinus rhythm with rate of 80. CT interval 165. QRS 110. QTC of 434. No diffuse ST segment elevations or depressions 24-hour interval change 01/07/2024 Patient is seen and evaluated sitting up in bed with multiple family members present in the room; reports feeling better but continues to complain of weakness Vital signs are reviewed and remained stable Lab review shows sodium trending up to 126 from 119 yesterday; goal sodium level is between 132-134; patient remains on IV fluids in form of normal saline; remains on fluid restriction -Nephrology on board and recommending to discontinue hydrochlorothiazide indefinitely; amlodipine 5 mg daily is added --We will consult PT/OT for evaluation and recommendations for discharge planning Possible discharge in next 24 hours if remains stable Objective - Vital Signs Vital signs: Vital Signs Temp 98.3 F 01/07/24 08:00 Pulse 81 01/07/24 08:00 Resp 20 01/07/24 08:00 BP 163/77 01/07/24 08:00 Pulse Ox 96 01/07/24 08:00 FiO2 Intake & Output 01/06/24 01/07/24 01/07/24 18:59 06:59 18:59 Intake Total 476 60 Output Total 850 200 Balance 476 -850 -140 Weight 86.7 kg Intake: Oral 476 60 Output: Urine 850 200 Other: Voiding Method Bedside Commode # Voids 1 - Exam Head exam: Present: normocephalic Eye exam: Present: PERRL, EOMI, other (ecchymosis around the right eye). Absent: scleral icterus, conjunctival injection, periorbital swelling ENT exam: Present: normal exam, mucous membranes moist Neck exam: Present: normal inspection. Absent: tenderness, meningismus, lymphadenopathy Respiratory exam: Present: normal lung sounds bilaterally. Absent: respiratory distress, wheezes, rales, rhonchi, stridor Cardiovascular Exam: Present: regular rate, normal rhythm, normal heart sounds. Absent: systolic murmur, diastolic murmur, rubs, gallop, clicks GI/Abdominal exam: Present: soft, normal bowel sounds. Absent: distended, tenderness, guarding, rebound, rigid Extremities exam: Present: normal inspection, full ROM, normal capillary refill. Absent: tenderness, pedal edema, joint swelling, calf tenderness Neurological exam: Present: alert, oriented X3, CN II-XII intact Skin exam: Present: warm, dry, intact, normal color. Absent: rash - Labs CBC & Chem 7: 01/07/24 02:35 01/07/24 14:09 Labs: Abnormal Lab Results - Last 24 Hours (Table) 01/06/24 01/06/24 01/06/24 Range/Units 10:00 12:04 19:42 Sodium 121 L 122 L (137-145) mmol/L Chloride (98-107) mmol/L Carbon Dioxide (22-30) mmol/L Glucose (74-99) mg/dL Calcium (8.4-10.2) mg/dL Ur Random Sodium <20 L (40-220) mmol/L 01/07/24 01/07/24 01/07/24 Range/Units 02:35 02:35 07:26 Sodium 123 L 122 L 126 L (137-145) mmol/L Chloride 97 L (98-107) mmol/L Carbon Dioxide 18 L (22-30) mmol/L Glucose 106 H (74-99) mg/dL Calcium 8.2 L (8.4-10.2) mg/dL Ur Random Sodium (40-220) mmol/L Assessment and Plan Assessment: 1. Critical hyponatremia --Patient received IV normal saline bolus in ED; has been placed on a continuous normal saline drip at rate of 100 cc an hour; will monitor sodium levels every 6 hours -Order serum and urine osmolality and serum and urine sodium levels -Nephrology is consulted 2. Hypokalemia; supplemented in ED; will monitor electrolytes 3. Falls/debility versus related to electrolyte imbalance; supplemented as indicated above; we will consult PT/OT 4. Hypertension; patient takes losartan/hydrochlorothiazide 100-25 mg daily; we will discontinue hydrochlorothiazide; continue with losartan 100 mg daily 5. Vitamin D deficiency; continue current home vitamin D supplement 6. Vitamin B12 deficiency; vitamin B12 500 mcg daily 7. Gastroesophageal reflux disease; omeprazole 20 mg daily 8. Depression; Celexa 20 mg daily DVT prophylaxis; SCDs CODE STATUS; full code
[2024-01-08 08:32] LABS: African American GFR (CKD) >90 (>60 ml/min/1.73 sqM); Anion Gap 7 mmol/L; Blood Urea Nitrogen 6 mg/dL (7-17); Carbon Dioxide 27 mmol/L (22-30); Chloride 95 mmol/L (98-107); Glucose 120 mg/dL (74-99); Non-African American GFR(CKD) >90 (>60 ml/min/1.73 sqM); Sodium 129 mmol/L (137-145)
[2024-01-08] MEDS: amLODIPine 10 MG TAB PO SCH (08:43)
[2024-01-08] MEDS ORDERED: ACETAMINOPHEN TAB 325 MG TAB PO PRN (08:47)
[2024-01-08] MEDS ORDERED: BENZOCAINE/MENTHOL LOZENG 1 EACH LOZENGE MUCOUS MEM PRN (08:47)
[2024-01-08 11:01] VITALS: TEMP 97.8
--- NOTE | 2024-01-08 11:56 | P.DS ---
Providers Date of admission: 01/05/24 14:18 Expected date of discharge: 01/08/24 Attending physician: Pilo Coleman MD Consults: 01/05/24 14:17 Consult Physician Urgent Consulting Provider: Adan Mahoney Consult Reason/Comments: hyponatremia, diurectic use Do you want consulting provider notified?: Already Contacted Primary care physician: Mellissa Evans Hospital Course: Hypovolemic hyponatremia secondary to thiazide use, HCTZ has been discontinued. Sodium currently 129 Fall secondary to the above Essential hypertension Hypokalemia, resolved with supplementation Gastroesophageal reflux disease Depression Hospital course: (Per covering hospitalist 78 year old female presents to the emergency Department with multiple falls. Patient states for the past week she has been extremely off balance. This led to a fall with head injury on Monday. Patient struck the right side of her face. She knows consciousness. She is not on blood thinners. Patient is experiencing a black eye. She denies headaches or visual changes. No vertiginous symptoms. Denies lightheadedness. Reports that her symptoms are worse upon standing. No chest pain or difficulty breathing. No recent medication changes. No history of similar. No other alleviating, visiting offing factors Blood work completed in ED reveals a WBC of 10.2, hemoglobin of 13.6 and platelet count of 279, sodium 115, potassium 3.4, BUNs/creatinine of 9/0.58 and blood glucose of 124, troponin of 0.018 UA is unremarkable EKG demonstrates sinus rhythm with rate of 80. DE interval 165. QRS 110. QTC of 434. No diffuse ST segment elevations or depressions 24-hour interval change 01/07/2024 Patient is seen and evaluated sitting up in bed with multiple family members present in the room; reports feeling better but continues to complain of weakness Vital signs are reviewed and remained stable Lab review shows sodium trending up to 126 from 119 yesterday; goal sodium level is between 132-134; patient remains on IV fluids in form of normal saline; remains on fluid restriction -Nephrology on board and recommending to discontinue hydrochlorothiazide indefinitely; amlodipine 5 mg daily is added --We will consult PT/OT for evaluation and recommendations for discharge planning Possible discharge in next 24 hours if remains stable) 01/08/2024. Hypertensive this morning, Norvasc increased with repeat blood pressure pending. Maintain on IV fluid hydration with sodium up to 129. Denies nausea, vomiting. Denies heartburn. Denies chest pain, palpitations or shortness of breath. Complains of headache. Denies dizziness or blurred vision. Evaluated by PT recommending home/home with home care. Patient will be discharged home today in a stable condition with guarded prognosis pending final DC recommendations, clearance per nephrology and improved blood pressure post administration of increased Norvasc. The impression and plan of care has been dictated as directed. : I performed a history and examination of this patient, discussed the same with the dictator. I agree with the dictator's note ,documented as a scribe. Any additional findings or plans will be noted. Patient Condition at Discharge: Stable Plan - Discharge Summary Discharge Rx Participant: No New Discharge Prescriptions: New Losartan [Cozaar] 50 mg PO DAILY #30 tab amLODIPine [Norvasc] 10 mg PO DAILY #30 tab Continue Ibuprofen [Advil] 400 mg PO BID Omeprazole 20 mg PO DAILY Multivit-Min/FA/Lycopen/Lutein [Centrum Silver Tablet] 1 tab PO DAILY Cyanocobalamin [Vitamin B-12] 500 mcg PO DAILY Vitamin D3/Vitamin K2 (Mk4) [Vitamin K2 Plus D3 Tablet] 1 tab PO DAILY Citalopram Hydrobromide [CeleXA] 20 mg PO DAILY Discontinued Losartan/Hydrochlorothiazide [Hyzaar 100-25 Tablet] 1 tab PO DAILY Discharge Medication List Cyanocobalamin [Vitamin B-12] 500 mcg PO DAILY 05/15/22 [History] Citalopram Hydrobromide [CeleXA] 20 mg PO DAILY 01/05/24 [History] Ibuprofen [Advil] 400 mg PO BID 01/05/24 [History] Multivit-Min/FA/Lycopen/Lutein [Centrum Silver Tablet] 1 tab PO DAILY 01/05/24 [History] Omeprazole 20 mg PO DAILY 01/05/24 [History] Vitamin D3/Vitamin K2 (Mk4) [Vitamin K2 Plus D3 Tablet] 1 tab PO DAILY 01/05/24 [History] Losartan [Cozaar] 50 mg PO DAILY #30 tab 01/08/24 [Rx] amLODIPine [Norvasc] 10 mg PO DAILY #30 tab 01/08/24 [Rx] Follow up Appointment(s)/Referral(s): Pilo Coleman MD [STAFF PHYSICIAN] - 1 Week Ambulatory/Diagnostic Orders: Basic Metabolic Panel [LAB.AMB] Time Frame: 3 Days, Location: None Selected Discharge Disposition: HOME WITH HOME HEALTH SERVICES
[2024-01-08] MEDS: ACETAMINOPHEN IV (For NPO) 1,000 MG in EMPTY BAG 1 BAG IVPB STA (12:24)
--- NOTE | 2024-01-08 13:05 | P.PN ---
Subjective patient is seen for follow-up for hyponatremia. Hypovolemic and improving with normal saline. Serum sodium is 129 today. No significant complaints today. Objective - Vital Signs Vital signs: Vital Signs Temp 97.8 F 01/08/24 08:10 Pulse 78 01/08/24 08:10 Resp 18 01/08/24 08:10 BP 179/78 01/08/24 08:10 Pulse Ox 96 01/08/24 08:10 FiO2 Intake & Output 01/07/24 01/08/24 01/08/24 18:59 06:59 18:59 Intake Total 538 240 180 Output Total 200 Balance 338 240 180 Weight 85.9 kg Intake: Oral 538 240 180 Output: Urine 200 Other: Voiding Method Toilet Toilet # Voids 1 2 1 - Exam patient is awake, comfortable, no acute distress. Examination of the heart S1 and S2 Examination of the lungs bilateral breath sounds are heard Abdomen is soft nontender Examination of lower extremity shows no significant edema - Labs CBC & Chem 7: 01/07/24 02:35 01/08/24 07:36 Labs: Abnormal Lab Results - Last 24 Hours (Table) 01/07/24 01/08/24 Range/Units 14:09 07:36 Sodium 125 L 129 L (137-145) mmol/L Chloride 95 L (98-107) mmol/L BUN 6 L (7-17) mg/dL Creatinine 0.49 L (0.52-1.04) mg/dL Glucose 120 H (74-99) mg/dL Assessment and Plan Assessment: 1. Hypovolemic hyponatremia related to thiazide use. Na 115 on admission and improved to 129 today with IVF. Urine osmolality 275, urine sodium less than 20. 2. Fall with BHT due to hyponatremia 3. Essential HTN Plan: continue to encourage increased oral intake. If patient is discharged repeat labs as outpatient in 1-2 days. Continue to hold thiazide diuretics post discharge.
[2024-01-08 13:44] VITALS: BP 154/79; PULSE 88; RESP 16
[2024-01-08] MEDS: MAGNESIUM SULFATE-D5W PMX 1 GM in DEXTROSE/WATER 1 100ML.BAG IVPB ONE (13:58)
== END 2024-01-08 16:05 | disposition home or self-care (01) | DRG 641 ==
LOC: EC 10:16 → 3SCARD 14:18
PROVIDERS: ADMIT Family Medicine; ATTEND Family Medicine
DX: E87.1 Hypo-osmolality and hyponatremia (principal); S09.90XA Unspecified injury of head, initial encounter; J44.9 Chronic obstructive pulmonary disease, unspecified; I10 Essential (primary) hypertension; F32.A Depression, unspecified; T50.2X5A Adverse effect of carbonic-anhydrase inhibitors, benzothiadiazides and other diuretics, initial encounter; S00.10XA Contusion of unspecified eyelid and periocular area, initial encounter; E86.1 Hypovolemia; E87.6 Hypokalemia; E55.9 Vitamin D deficiency, unspecified; E53.8 Deficiency of other specified B group vitamins; K21.9 Gastro-esophageal reflux disease without esophagitis; F41.9 Anxiety disorder, unspecified; M19.90 Unspecified osteoarthritis, unspecified site; R29.6 Repeated falls; Z79.899 Other long term (current) drug therapy; Z87.891 Personal history of nicotine dependence; W19.XXXA Unspecified fall, initial encounter
CPT/HCPCS: 36415; 70450; 70496; 70498; 72125; 80048; 80053; 81003; 83930; 83935; 84295; 84300; 84484; 85025; 85610; 93005; 96360; 96361; 99285

== ENCOUNTER 2024-01-10 08:00 | Emergency (ER) | payer MEDICARE ==
--- NOTE | 2024-01-10 09:13 | ED ---
General Adult HPI - General Chief complaint: Dizziness Stated complaint: Dizziness Time Seen by Provider: 01/10/24 08:22 Source: patient Mode of arrival: EMS Limitations: no limitations - History of Present Illness Initial comments: Dictation was produced using [employer] dictation software. please excuse any grammatical, word or spelling errors. Chief Complaint: 78-year-old female presents with dizziness History of Present Illness: Patient 78-year-old female she woke up this morning feeling in her usual state of health. She got up started to feel dizzy in her trailer. Patient states that she was so dizzy she lowered herself to the ground and sat. She denies any fall. Since being in the emergency department patient's symptoms are improved. She has no pain complaints. States that her blood pressure medications have been rearranged recently. The ROS documented in this emergency department record has been reviewed and confirmed by me. Those systems with pertinent positive or negative responses have been documented in the HPI. All other systems are other negative and/or noncontributory. - Related Data Home Medications Medication Instructions Recorded Confirmed Cyanocobalamin [Vitamin B-12] 500 mcg PO DAILY 05/15/22 01/05/24 Citalopram Hydrobromide [CeleXA] 20 mg PO DAILY 01/05/24 01/05/24 Ibuprofen [Advil] 400 mg PO BID 01/05/24 01/05/24 Multivit-Min/FA/Lycopen/Lutein 1 tab PO DAILY 01/05/24 01/05/24 [Centrum Silver Tablet] Omeprazole 20 mg PO DAILY 01/05/24 01/05/24 Vitamin D3/Vitamin K2 (Mk4) 1 tab PO DAILY 01/05/24 01/05/24 [Vitamin K2 Plus D3 Tablet] Previous Rx's Medication Instructions Recorded Losartan [Cozaar] 50 mg PO DAILY #30 tab 01/08/24 amLODIPine [Norvasc] 10 mg PO DAILY #30 tab 01/08/24 Allergies Allergy/AdvReac Type Severity Reaction Status Date / Time No Known Allergies Allergy Verified 01/10/24 08:05 Review of Systems ROS Statement: Those systems with pertinent positive or pertinent negative responses have been documented in the HPI. ROS Other: All systems not noted in ROS Statement are negative. Past Medical History Past Medical History: GERD/Reflux, Osteoarthritis (OA) Additional Past Medical History / Comment(s): hx of dysphagia History of Any Multi-Drug Resistant Organisms: None Reported Past Surgical History: Hysterectomy, Orthopedic Surgery Additional Past Surgical History / Comment(s): Colonoscopy, egd with dilation Past Anesthesia/Blood Transfusion Reactions: Previous Problems w/ Anesthesia Additional Past Anesthesia/Blood Transfusion Reaction / Comment(s): states "my B/P went high after my EGD" Past Psychological History: Anxiety Smoking Status: Former smoker Past Alcohol Use History: Rare Past Drug Use History: None Reported - Past Family History Father Family Medical History: Cancer Additional Family Medical History / Comment(s): Prostate CA General Exam - General Exam Comments Initial Comments: PHYSICAL EXAM: General Impression: Alert and oriented x3, not in acute distress HEENT: Normocephalic atraumatic, extra-ocular movements intact, pupils equal and reactive to light bilaterally, mucous membranes moist. Cardiovascular: Heart regular rate and rhythm Chest: Able to complete full sentences, no retractions, no tachypnea Abdomen: abdomen soft, non-tender, non-distended, no organomegaly Musculoskeletal: Pulses present and equal in all extremities, no peripheral edema Motor: no focal deficits noted Neurological: CN II-XII grossly intact, no focal motor or sensory deficits noted Skin: Intact with no visualized rashes Psych: Normal affect and mood Limitations: no limitations Course Vital Signs 01/10/24 01/10/24 01/10/24 08:01 08:36 10:14 Temperature 97 F L Pulse Rate 90 86 87 Respiratory 16 16 18 Rate Blood Pressure 188/109 162/98 152/94 O2 Sat by Pulse 96 96 97 Oximetry EKG Findings - EKG Comments: EKG Findings:: My EKG interpretation: Ventricular rate 89, sinus rhythm,. 156, cures 97, QTc 428. No MT prolongation, no QTC prolongation, no ST or T-wave changes noted. Overall, this EKG is unremarkable Medical Decision Making - Medical Decision Making Was pt. sent in by a medical professional or institution (, PA, [employer] SALES ENGINEER, urgent care, hospital, or halfway...) When possible be specific @ -No Did you speak to anyone other than the patient for history (EMS, parent, family, police, friend...)? What history was obtained from this source @ -No Did you review nursing and triage notes (agree or disagree)? Why? @ -I reviewed and agree with nursing and triage notes Were old charts reviewed (outside hosp., previous admission, EMS record, old EKG, old radiological studies, urgent care reports/EKG's, halfway records)? Report findings @ -No old charts were reviewed Differential Diagnosis (chest pain, altered mental status, abdominal pain women, abdominal pain men, vaginal bleeding, musculoskeletal, weakness, fever, dyspnea, syncope, headache, dizziness, GI bleed, back pain, seizure, CVA, palpatations, mental health)? @ -Differential Dizziness: Benign paroxysmal positional Vertigo, Menieres disease, otitis media, acoustic neuroma, vertebrobasilar insufficiency, cerebellar stroke, encephalitis, hypovolemic, arrhythmia, coronary artery syndrome, anemia, this is not meant to be an all-inclusive list EKG interpreted by me (3pts min.). @ -See above X-rays interpreted by me (1pt min.). @ -Pelvis x-ray shows no acute fracture CT interpreted by me (1pt min.). @ -None done U/S interpreted by me (1pt. min.). @ -None done What testing was considered but not performed or refused? (CT, X-rays, U/S, labs)? Why? @ -None What meds were considered but not given or refused? Why? @ -None Was smoking cessation discussed for >3mins.? @ -No Were there social determinants of health that impacted care today? How? (Homelessness, low income, unemployed, alcoholism, drug addiction, transportation, low edu. Level, literacy, decrease access to med. care, assisted, rehab)? @ -No Was there de-escalation of care discussed even if they declined (Discuss DNR or withdrawal of care, Hospice)? DNR status @ -No What co-morbidities impacted this encounter? (DM, HTN, Smoking, COPD, CAD, Cancer, CVA, ARF, Chemo, Hep., AIDS, mental health diagnosis, sleep apnea, morb id obesity)? @ -None Was patient admitted / discharged? Hospital course, mention meds given and rou te, prescriptions, significant lab abnormalities, going to OR and other pertinent info. @ -78-year-old female with chief complaint of dizziness. Vital signs stable. Patient denies any complaints at the bedside. Patient did complain of some mild sacral pain. Pelvis x-ray is negative. Laboratory evaluation obtained. CBC unremarkable. Metabolic panel shows some mild hyponatremia 126. Patient notified of her hyponatremia. She is told to increase her fluid hydration and salt intake. Advise close follow-up with primary care doctor. Did you discuss the management of the patient with other professionals (professionals i.e. , PA, [employer] SALES ENGINEER, lab, RT, psych nurse, social services specialist, lunchroom attendant, teacher, sheriff's officer, wrapper caser)? Give summary @ -No Was critical care preformed (if so, how long)? @ -No Undiagnosed new problem with uncertain prognosis? @ -No Drug Therapy requiring intensive monitoring for toxicity (Heparin, Nitro, Insulin, Cardizem)? @ -No Were any procedures done? @ -No Diagnosis/symptom? Acute, or Chronic, or Acute on Chronic? Uncomplicated (without systemic symptoms) or Complicated (systemic symptoms)? @ -Hyponatremia Side effects of treatment? @ -No Exacerbation, Progression, or Severe Exacerbation? @ -No Poses a threat to life or bodily function? How? (Chest pain, USA, [place], pneumonia, PE, COPD, DKA, ARF, appy, cholecystitis, CVA, Diverticulitis, Homicidal, S uicidal, threat to staff... and all critical care pts) @ -No - Lab Data Result diagrams: 01/10/24 09:08 01/10/24 09:08 Lab Results 01/10/24 01/10/24 Range/Units 09:08 09:08 WBC 9.8 (3.8-10.6) k/uL RBC 4.50 (3.80-5.40) m/uL Hgb 14.1 (11.4-16.0) gm/dL Hct 41.5 (34.0-46.0) % MCV 92.1 (80.0-100.0) fL MCH 31.4 (25.0-35.0) pg MCHC 34.0 (31.0-37.0) g/dL RDW 12.6 (11.5-15.5) % Plt Count 363 (150-450) k/uL MPV 6.9 Neutrophils % 80 % Lymphocytes % 11 % Monocytes % 6 % Eosinophils % 1 % Basophils % 0 % Neutrophils # 7.9 H (1.3-7.7) k/uL Lymphocytes # 1.1 (1.0-4.8) k/uL Monocytes # 0.6 (0-1.0) k/uL Eosinophils # 0.1 (0-0.7) k/uL Basophils # 0.0 (0-0.2) k/uL Sodium 126 L (137-145) mmol/L Potassium 3.9 (3.5-5.1) mmol/L Chloride 91 L (98-107) mmol/L Carbon Dioxide 27 (22-30) mmol/L Anion Gap 8 mmol/L BUN 10 (7-17) mg/dL Creatinine 0.55 (0.52-1.04) mg/dL Est GFR (CKD-EPI)AfAm >90 (>60 ml/min/1.73 sqM) Est GFR (CKD-EPI)NonAf >90 (>60 ml/min/1.73 sqM) Glucose 120 H (74-99) mg/dL Calcium 9.4 (8.4-10.2) mg/dL Magnesium 1.9 (1.6-2.3) mg/dL Disposition Clinical Impression: Dizziness, Hyponatremia Disposition: HOME SELF-CARE Condition: Good Instructions (If sedation given, give patient instructions): Hyponatremia (ED) Is patient prescribed a controlled substance at d/c from ED?: No Referrals: Mellissa Evans DO [Primary Care Provider] - 1-2 days Time of Disposition: 10:29
[2024-01-10 09:18] LABS: Basophils % (A) 0 %; Eosinophils # (A) 0.1 k/uL (0-0.7); Eosinophils % (A) 1 %; HCT 41.5 % (34.0-46.0); HGB 14.1 gm/dL (11.4-16.0); Lymphocytes # (A) 1.1 k/uL (1.0-4.8); Lymphocytes % (A) 11 %; MCH 31.4 pg (25.0-35.0); MCV 92.1 fL (80.0-100.0); Mean Platelet Volume 6.9; Monocytes # (A) 0.6 k/uL (0-1.0); Monocytes % (A) 6 %; Neutrophils # (A) 7.9 k/uL (1.3-7.7); Neutrophils % (A) 80 %; Platelet Count 363 k/uL (150-450); RDW 12.6 % (11.5-15.5); WBC 9.8 k/uL (3.8-10.6)
--- NOTE | 2024-01-10 09:39 | XR ---
EXAMINATION TYPE: XR pelvis AP view DATE OF EXAM: 01/10/2024 COMPARISON: NONE HISTORY: Pain The osseous structures are intact and the joint spaces are preserved. No acute fracture is seen. Vi sualized bowel gas pattern is nonspecific. Diffuse osteopenia with SI joint arthropathy and bilatera l hip arthropathy greater on the left. Surgical pelvis. Degenerative changes lumbar spine. Well-corti cated ossification along the right greater trochanter. Additional soft tissue calcification seen on t he left. IMPRESSION: 1. Bilateral hip arthropathy greater on the left. No definite acute displaced fracture. If clinical s uspicion high or difficulty with weightbearing correlate with CT scan.
[2024-01-10 10:15] VITALS: RESP 18
[2024-01-10 10:25] LABS: African American GFR (CKD) >90 (>60 ml/min/1.73 sqM); Anion Gap 8 mmol/L; Blood Urea Nitrogen 10 mg/dL (7-17); Calcium 9.4 mg/dL (8.4-10.2); Carbon Dioxide 27 mmol/L (22-30); Chloride 91 mmol/L (98-107); Glucose 120 mg/dL (74-99); Magnesium 1.9 mg/dL (1.6-2.3); Non-African American GFR(CKD) >90 (>60 ml/min/1.73 sqM); Potassium 3.9 mmol/L (3.5-5.1); Sodium 126 mmol/L (137-145)
[2024-01-10 10:45] VITALS: BP 158/89; PULSE 77; TEMP 98
== END 2024-01-10 10:47 | disposition home or self-care (01) ==
LOC: EC 08:00
DX: R42 Dizziness and giddiness (principal); E87.1 Hypo-osmolality and hyponatremia; Z87.891 Personal history of nicotine dependence
CPT/HCPCS: 36415; 72170; 80048; 83735; 85025; 93005; 99285

== ENCOUNTER 2024-01-19 08:10 | Inpatient (IN) | payer MEDICARE ==
--- NOTE | 2024-01-19 08:41 | ED ---
General Adult HPI - General Chief complaint: Weakness Stated complaint: Dizziness Time Seen by Provider: 01/19/24 08:15 Source: patient, EMS, RN notes reviewed, old records reviewed Mode of arrival: EMS Limitations: no limitations - History of Present Illness Initial comments: This is a 78-year-old female who presents to the emergency department gl[place] bar of being dizzy. Patient states she got up this morning and she felt dizzy and she states it felt like her vertigo that she had before. Patient states she felt like she was going to fall over and at no time did she ever feel like she was going to pass out. Patient denies chest pain difficulty breathing or shortness of breath. Patient has any palpitations. Patient has abdominal pain patient has any nausea vomiting. Patient states if she lays here now she is not dizzy but if she gets up she starts to become dizzy. Patient states recently she got a call from her doctor stating her sodium was elevated but that he would follow-up with her next week. Patient denies any recent fever chills or cough - Related Data Home Medications Medication Instructions Recorded Confirmed Cyanocobalamin [Vitamin B-12] 500 mcg PO DAILY 05/15/22 01/05/24 Citalopram Hydrobromide [CeleXA] 20 mg PO DAILY 01/05/24 01/05/24 Ibuprofen [Advil] 400 mg PO BID 01/05/24 01/05/24 Multivit-Min/FA/Lycopen/Lutein 1 tab PO DAILY 01/05/24 01/05/24 [Centrum Silver Tablet] Omeprazole 20 mg PO DAILY 01/05/24 01/05/24 Vitamin D3/Vitamin K2 (Mk4) 1 tab PO DAILY 01/05/24 01/05/24 [Vitamin K2 Plus D3 Tablet] Previous Rx's Medication Instructions Recorded Losartan [Cozaar] 50 mg PO DAILY #30 tab 01/08/24 amLODIPine [Norvasc] 10 mg PO DAILY #30 tab 01/08/24 Allergies Allergy/AdvReac Type Severity Reaction Status Date / Time No Known Allergies Allergy Verified 01/19/24 08:19 Review of Systems ROS Statement: Those systems with pertinent positive or pertinent negative responses have been documented in the HPI. ROS Other: All systems not noted in ROS Statement are negative. Past Medical History Past Medical History: GERD/Reflux, Hypertension, Osteoarthritis (OA) Additional Past Medical History / Comment(s): hx of dysphagia History of Any Multi-Drug Resistant Organisms: None Reported Past Surgical History: Hysterectomy, Orthopedic Surgery Additional Past Surgical History / Comment(s): Colonoscopy, egd with dilation Past Anesthesia/Blood Transfusion Reactions: Previous Problems w/ Anesthesia Additional Past Anesthesia/Blood Transfusion Reaction / Comment(s): states "my B/P went high after my EGD" Past Psychological History: Anxiety Smoking Status: Former smoker Past Alcohol Use History: Rare Past Drug Use History: None Reported - Past Family History Father Family Medical History: Cancer Additional Family Medical History / Comment(s): Prostate CA General Exam - General Exam Comments Initial Comments: GENERAL: Patient is well-developed and well-nourished. Patient is nontoxic and well- hydrated and is in mild distress. ENT: Neck is soft and supple. No significant lymphadenopathy is noted. Oropharynx is clear. Moist mucous membranes. Neck has full range of motion without eliciting any pain. EYES: The sclera were anicteric and conjunctiva were pink and moist. Extraocular movements were intact and pupils were equal round and reactive to light. Eyelids were unremarkable. PULMONARY: Unlabored respirations. Good breath sounds bilaterally. No audible rales rhonchi or wheezing was noted. CARDIOVASCULAR: There is a regular rate and rhythm without any murmurs gallops or rubs. ABDOMEN: Soft and nontender with normal bowel sounds. SKIN: Skin is clear with no lesions or rashes and otherwise unremarkable. NEUROLOGIC: Patient is alert and oriented x3. Cranial nerves II through XII are grossly intact. Motor and sensory are also intact. Normal speech, volume and content. Symmetrical smile. Finger-nose testing was normal bilaterally MUSCULOSKELETAL: Normal extremities with adequate strength and full range of motion. No lower extremity swelling or edema. No calf tenderness. LYMPHATICS: No significant lymphadenopathy is noted PSYCHIATRIC: Normal psychiatric evaluation. Limitations: no limitations Course Vital Signs 01/19/24 08:13 Temperature 98.4 F Pulse Rate 81 Respiratory 17 Rate Blood Pressure 169/93 O2 Sat by Pulse 95 Oximetry Medical Decision Making - Medical Decision Making EKG is interpreted by myself but EKG shows a sinus rhythm at 79 bpm [place] interval 158 QRS 110 QT interval 332 QTc is 367. Patient's EKG shows no ST segment elevation or depression. Was pt. sent in by a medical professional or institution (Dr., PA, [employer]NA ARCHITECT, urgent care, hospital, or skilled nursing...) When possible be specific @ -No Did you speak to anyone other than the patient for history (EMS, parent, family, police, friend...)? What history was obtained from this source @ -No Did you review nursing and triage notes (agree or disagree)? Why? @ -I reviewed and agree with nursing and triage notes Were old charts reviewed (outside hosp., previous admission, EMS record, old EKG, old radiological studies, urgent care reports/EKG's, skilled nursing records)? Report findings @ -I looked at previous lab work to compare today's results and patient's sodium today is lower than baseline Differential Diagnosis? @ -Differential Dizziness: Benign paroxysmal positional Vertigo, Menieres disease, otitis media, acoustic neuroma, vertebrobasilar insufficiency, cerebellar stroke, encephalitis, hypovolemic, arrhythmia, coronary artery syndrome, anemia, this is not meant to be an all-inclusive list EKG interpreted by me (3pts min.). @ -As above X-rays interpreted by me (1pt min.). @ -Chest x-ray shows no acute abnormality CT interpreted by me (1pt min.). @ -None done U/S interpreted by me (1pt. min.). @ -None done What testing was considered but not performed or refused? (CT, X-rays, U/S, labs)? Why? @ -None What meds were considered but not given or refused? Why? @ -None Did you discuss the management of the patient with other professionals (professionals i.e. , PA, [employer] ARCHITECT, lab, RT, psych nurse, protective services social worker, district home economics agent, teacher, morale officer, director of casework department)? Give summary @ -I spoke with Dr. Madera he agreed to admit the patient admit the patient wrote admitting orders Was smoking cessation discussed for >3mins.? @ -No Was critical care preformed (if so, how long)? @ -No Were there social determinants of health that impacted care today? How? (Homelessness, low income, unemployed, alcoholism, drug addiction, transportation, low edu. Level, literacy, decrease access to med. care, usp, r ehab)? @ -No Was there de-escalation of care discussed even if they declined (Discuss DNR or withdrawal of care, Hospice)? DNR status @ -No What co-morbidities impacted this encounter? (DM, HTN, Smoking, COPD, CAD, Cancer, CVA, ARF, Chemo, Hep., AIDS, mental health diagnosis, sleep apnea, morbid obesity)? @ -None Was patient admitted / discharged? Hospital course, mention meds given and route, prescriptions, significant lab abnormalities, going to OR and other pertinent info. @ -Patient was hyponatremic at 117. Patient did get a 500 cc bolus of normal saline. Patient will be put on a 75 cc drip of normal saline. Patient will be admitted to Dr. Madera and nephrology will be consulted Undiagnosed new problem with uncertain prognosis? @ -No Drug Therapy requiring intensive monitoring for toxicity (Heparin, Nitro, Insulin, Cardizem)? @ -No Were any procedures done? @ -No Diagnosis/symptom? @ -Hyponatremia Acute, or Chronic, or Acute on Chronic? @ -Acute Uncomplicated (without systemic symptoms) or Complicated (systemic symptoms)? @ -Complicated Side effects of treatment? @ -No Exacerbation, Progression, or Severe Exacerbation? @ -No Poses a threat to life or bodily function? How? (Chest pain, USA, [place], pneumonia, PE, COPD, DKA, ARF, appy, cholecystitis, CVA, Diverticulitis, Homicidal, Suicidal, threat to staff... and all critical care pts) @ -Yes this can lead to altered mental status and possible - Lab Data Result diagrams: 01/19/24 08:32 01/19/24 08:32 Lab Results 01/19/24 01/19/24 Range/Units 08:32 08:32 WBC 9.3 (3.8-10.6) k/uL RBC 4.46 (3.80-5.40) m/uL Hgb 13.6 (11.4-16.0) gm/dL Hct 39.9 (34.0-46.0) % MCV 89.5 (80.0-100.0) fL MCH 30.6 (25.0-35.0) pg MCHC 34.2 (31.0-37.0) g/dL RDW 12.8 (11.5-15.5) % Plt Count 466 H (150-450) k/uL MPV 6.9 Neutrophils % 81 % Lymphocytes % 10 % Monocytes % 7 % Eosinophils % 0 % Basophils % 0 % Neutrophils # 7.5 (1.3-7.7) k/uL Lymphocytes # 0.9 L (1.0-4.8) k/uL Monocytes # 0.6 (0-1.0) k/uL Eosinophils # 0.0 (0-0.7) k/uL Basophils # 0.0 (0-0.2) k/uL Sodium 117 L* (137-145) mmol/L Potassium 3.2 L (3.5-5.1) mmol/L Chloride 80 L (98-107) mmol/L Carbon Dioxide 28 (22-30) mmol/L Anion Gap 9 mmol/L BUN 8 (7-17) mg/dL Creatinine 0.52 (0.52-1.04) mg/dL Est GFR (CKD-EPI)AfAm >90 (>60 ml/min/1.73 sqM) Est GFR (CKD-EPI)NonAf >90 (>60 ml/min/1.73 sqM) Glucose 133 H (74-99) mg/dL Calcium 9.2 (8.4-10.2) mg/dL Magnesium 1.7 (1.6-2.3) mg/dL Total Bilirubin 0.9 (0.2-1.3) mg/dL AST 26 (14-36) U/L ALT 19 (4-34) U/L Alkaline Phosphatase 77 (38-126) U/L Total Protein 7.1 (6.3-8.2) g/dL Albumin 4.2 (3.5-5.0) g/dL Disposition Clinical Impression: Hyponatremia Disposition: ADMITTED IP TO THIS HOSP Referrals: Mellissa Evans DO [Primary Care Provider] - 1-2 days Time of Disposition: 10:12
[2024-01-19 08:56] LABS: Basophils % (A) 0 %; Eosinophils % (A) 0 %; HCT 39.9 % (34.0-46.0); HGB 13.6 gm/dL (11.4-16.0); Lymphocytes # (A) 0.9 k/uL (1.0-4.8); Lymphocytes % (A) 10 %; MCH 30.6 pg (25.0-35.0); MCHC 34.2 g/dL (31.0-37.0); MCV 89.5 fL (80.0-100.0); Mean Platelet Volume 6.9; Monocytes # (A) 0.6 k/uL (0-1.0); Monocytes % (A) 7 %; Neutrophils # (A) 7.5 k/uL (1.3-7.7); Neutrophils % (A) 81 %; Platelet Count 466 k/uL (150-450); RBC 4.46 m/uL (3.80-5.40); RDW 12.8 % (11.5-15.5); WBC 9.3 k/uL (3.8-10.6)
[2024-01-19] MEDS: MECLIZINE 25 MG TAB PO STA (09:09)
[2024-01-19] MEDS: SODIUM CHLORIDE 0.9% 500 ML 500 ML IV ONE (09:10)
--- NOTE | 2024-01-19 09:12 | XR ---
EXAMINATION TYPE: XR chest 2V DATE OF EXAM: 01/19/2024 9:08 AM CLINICAL INDICATION:Female, 78 years old with history of Weakness; COMPARISON: Chest radiographs from 01/19/2024. TECHNIQUE: XR chest 2V Frontal view of the chest. FINDINGS: Lungs/Pleura: There is no evidence of pleural effusion, focal consolidation, or pneumothorax. Pulmonary vascularity: Unremarkable. Heart/mediastinum: Cardiomediastinal silhouette is unremarkable. Musculoskeletal: No acute osseous pathology. Other findings: None IMPRESSION: No acute cardiopulmonary disease/process.
[2024-01-19 09:20] LABS: ALT 19 U/L (4-34); AST 26 U/L (14-36); African American GFR (CKD) >90 (>60 ml/min/1.73 sqM); Albumin 4.2 g/dL (3.5-5.0); Alkaline Phosphatase 77 U/L (38-126); Anion Gap 9 mmol/L; Blood Urea Nitrogen 8 mg/dL (7-17); Calcium 9.2 mg/dL (8.4-10.2); Carbon Dioxide 28 mmol/L (22-30); Chloride 80 mmol/L (98-107); Glucose 133 mg/dL (74-99); Magnesium 1.7 mg/dL (1.6-2.3); Non-African American GFR(CKD) >90 (>60 ml/min/1.73 sqM); Potassium 3.2 mmol/L (3.5-5.1); Total Bilirubin 0.9 mg/dL (0.2-1.3); Total Protein 7.1 g/dL (6.3-8.2)
[2024-01-19 09:26] LABS: Sodium 117 mmol/L (137-145)
[2024-01-19] MEDS: SODIUM CHLORIDE 0.9% 1,000 ML IV ONE (10:19)
[2024-01-19 12:54] LABS: ALT 20 U/L (4-34); AST 24 U/L (14-36); African American GFR (CKD) >90 (>60 ml/min/1.73 sqM); Albumin 4.3 g/dL (3.5-5.0); Alkaline Phosphatase 77 U/L (38-126); Anion Gap 8 mmol/L; Blood Urea Nitrogen 8 mg/dL (7-17); Calcium 9.1 mg/dL (8.4-10.2); Carbon Dioxide 29 mmol/L (22-30); Chloride 83 mmol/L (98-107); Glucose 132 mg/dL (74-99); Non-African American GFR(CKD) >90 (>60 ml/min/1.73 sqM); Potassium 2.8 mmol/L (3.5-5.1); Sodium 120 mmol/L (137-145); Total Bilirubin 0.8 mg/dL (0.2-1.3); Total Protein 7.3 g/dL (6.3-8.2)
[2024-01-19] MEDS: POTASSIUM CHLORIDE ER 20 MEQ TAB.ER PO STA (19:30)
[2024-01-20] MEDS: POTASSIUM CHLORIDE 10 MEQ in WATER FOR INJECTION 1 100ML.BAG IVPB STA ×2 (00:21)
[2024-01-20] MEDS: POTASSIUM CHLORIDE ER 20 MEQ TAB.ER PO SCH (05:19)
[2024-01-20] MEDS: 0.9% NACL WITH KCL 20 MEQ/L 1,000 ML IV SCH (05:20)
[2024-01-20] MEDS ORDERED: SODIUM CHLORIDE 0.9% 1,000 ML IV SCH (10:15)
[2024-01-20] MEDS: amLODIPine 10 MG TAB PO SCH (10:47)
[2024-01-20] MEDS: LOSARTAN 50 MG TAB PO SCH ×2 (10:47→20:24)
[2024-01-20 10:58] LABS: Basophils % (A) 0 %; Eosinophils # (A) 0.1 k/uL (0-0.7); Eosinophils % (A) 1 %; HCT 39.7 % (34.0-46.0); HGB 13.6 gm/dL (11.4-16.0); Lymphocytes # (A) 0.6 k/uL (1.0-4.8); Lymphocytes % (A) 7 %; MCH 31.3 pg (25.0-35.0); MCHC 34.2 g/dL (31.0-37.0); MCV 91.4 fL (80.0-100.0); Mean Platelet Volume 6.5; Monocytes # (A) 0.4 k/uL (0-1.0); Monocytes % (A) 4 %; Neutrophils # (A) 7.5 k/uL (1.3-7.7); Neutrophils % (A) 87 %; Platelet Count 452 k/uL (150-450); RBC 4.34 m/uL (3.80-5.40); RDW 12.8 % (11.5-15.5); WBC 8.6 k/uL (3.8-10.6)
[2024-01-20 11:11] LABS: African American GFR (CKD) >90 (>60 ml/min/1.73 sqM); Anion Gap 7 mmol/L; Blood Urea Nitrogen 10 mg/dL (7-17); Calcium 8.9 mg/dL (8.4-10.2); Carbon Dioxide 23 mmol/L (22-30); Chloride 95 mmol/L (98-107); Glucose 183 mg/dL (74-99); Magnesium 1.9 mg/dL (1.6-2.3); Non-African American GFR(CKD) >90 (>60 ml/min/1.73 sqM); Potassium 4.2 mmol/L (3.5-5.1); Sodium 125 mmol/L (137-145)
--- NOTE | 2024-01-20 11:30 | P.HPIM ---
History of Present Illness H&P Date: 01/20/24 History of present illness; 78-year-old female presents to the emergency department with feelings of dizziness. Patient's past medical history is significant for hypertension. She states that she woke up in the morning on 01/18 and felt dizzy, states it felt like her vertigo that she has had previously. Patient states that she felt as though she was going to fall over, however never feeling like she was going to pass out. She denies any chest pain, difficulty breathing or shortness of breath. States that while laying in the bed she does not have feelings of dizziness however when she gets up she becomes dizzy. She was in the emergency department most recently a week and a half ago, 01/06/2024, with similar complaints of dizziness. At that time her sodium was 126. Patient's initial labs in the emergency department on 01/18 showed a sodium of 117, potassium 3.2, chloride of 80. In the emergency department patient was given 40 mEq of potassium chloride ER, and a further 2 doses of 20 mEq potassium chloride ER most recent of which at 6:48 AM. Additionally, she had received 1.5 L of normal saline, currently receiving 75 mL/h of normal saline with KCl 20 mEq. Patient has remained afebrile, while saturating in the mid 90s on room air, her blood pressure has been elevated since arrival. On arrival her blood pressure was 169/93 and has remained elevated most recently reading 160/82 at 4:54 AM. Home medications of Norvasc 10 mg daily and Losartan 50 mg daily have been restarted, additionally Lopressor 5 mg IV every 6 hours if the systolic blood pressure is greater than 160 has been added. Additionally patient complains of some back pain from catching herself while falling earlier this week, and some Tylenol will be added to assist. Additionally patient has been taking 20 mg daily of Celexa, which has been discontinued. Labs done today 01/19 showed sodium of 125 and potassium of 4.2. Nephrology has been consulted. Initial lab work done in the ER showed unremarkable CBC except for a platelet count of 466, sodium of 117, potassium 3.2, chloride 80, creatinine 0.52, gl ucose 133 Follow-up CMP 4 hours later showed a sodium of 120, potassium 2.8, chloride 83, chloride 0.51, glucose 132. Additionally urine osmolality 183 and random urine sodium 21. EKG done in the ER showed heart rate of 79, sinus rhythm with possible left atrial enlargement, possible history of septal myocardial infarction, left anterior fascicular block and left ventricular hypertrophy Chest x-ray done in the ER showed no acute cardiopulmonary disease process. Patient admitted to internal medicine service REVIEW OF SYSTEMS: CONSTITUTIONAL: No fever, no malaise, no fatigue. HEENT: No recent visual problems or hearing problems. Denied any sore throat. CARDIOVASCULAR: No chest pain, orthopnea, PND, no palpitations, no syncope. PULMONARY: No shortness of breath, no cough, no hemoptysis. GASTROINTESTINAL: No diarrhea, no nausea, no vomiting, no abdominal pain. NEUROLOGICAL: No headaches, no weakness, no numbness. HEMATOLOGICAL: Denies any bleeding or petechiae. GENITOURINARY: Denies any burning micturition, frequency, or urgency. MUSCULOSKELETAL/RHEUMATOLOGICAL: Denies any joint pain, swelling. Moderate back pain as result of catching herself while falling couple of days ago. ENDOCRINE: Denies any polyuria or polydipsia. The rest of the 14-point review of systems is negative. PHYSICAL EXAMINATION: GENERAL: The patient is alert and oriented x3. Well developed, well nourished. Appears slightly dehydrated and in mild distress. HEENT: Pupils are round and equally reacting to light. EOMI. No scleral icterus. No conjunctival pallor. Normocephalic, atraumatic. No pharyngeal erythema. No thyromegaly. Moist mucous membranes. CARDIOVASCULAR: S1 and S2 present. No murmurs, rubs, or gallops. PULMONARY: Chest is clear to auscultation, no wheezing or crackles. ABDOMEN: Soft, nontender, nondistended, normoactive bowel sounds. No palpable organomegaly. MUSCULOSKELETAL: No joint swelling or deformity. Complains of moderate back pain as a result of catching herself while falling a couple days ago. EXTREMITIES: No cyanosis, clubbing, or pedal edema. NEUROLOGICAL: Gross neurological examination did not reveal any focal deficits. SKIN: No rashes. Assessment and plan #Hyponatremia possibly secondary to dehydration or drug-induced SIADH Patient sodium on arrival was 117, 120 on recheck 4 hours later Patient received 500 mL bolus of normal saline, and has received an additional 1000 mL Patient currently on 75 mL/h normal saline with 20 mEq of KCl Labs done today showed a sodium of 125 Patient had been taking Celexa, which could potentially cause SIADH, has been discontinued Patient serum osmolality pending, urine osmolality was 183, random urine sodium was 21 Will continue to monitor serum sodium every 6 hours until tomorrow morning #Hypokalemia Patient's potassium 3.2 on arrival, 2.8 on recheck 4 hours later Patient has received a total of 80 mEq of potassium chloride Labs done today showed a potassium of 4.2 #Hypertension Patient states she has been on amlodipine 10 mg daily for about a month Prior to that she never took any medications for high blood pressure Continue patient's home medication of Norvasc 10 mg daily and losartan 50 mg daily, additionally added 5 mg IV Lopressor as needed if the systolic blood pressure remains over 160 Continue to monitor her blood pressures Continue to monitor vital signs, monitor CBC, monitor CMP, continue telemetry monitoring Labs and medication were reviewed. Continue with symptomatic treatment. Resume home medication. Monitor labs and vitals. DVT and GI prophylaxis. Further recommendations as per clinical course of the patient Attestation: I attest I have personally seen and examined the patient with Resident, reviewed the documentation and participated and agree with the assessment and plan as written. Dictation was produced using [employer] dictation software. please excuse any grammatical, word or spelling errors. Past Medical History Past Medical History: GERD/Reflux, Hypertension, Osteoarthritis (OA) Additional Past Medical History / Comment(s): hx of dysphagia History of Any Multi-Drug Resistant Organisms: None Reported Past Surgical History: Hysterectomy, Orthopedic Surgery Additional Past Surgical History / Comment(s): Colonoscopy, egd with dilation Past Anesthesia/Blood Transfusion Reactions: Previous Problems w/ Anesthesia Additional Past Anesthesia/Blood Transfusion Reaction / Comment(s): states "my B/P went high after my EGD" Past Psychological History: Anxiety Smoking Status: Former smoker Past Alcohol Use History: Rare Past Drug Use History: None Reported - Past Family History Father Family Medical History: Cancer Additional Family Medical History / Comment(s): Prostate CA Medications and Allergies Home Medications Medication Instructions Recorded Confirmed Type Cyanocobalamin [Vitamin B-12] 500 mcg PO DAILY 05/15/22 01/19/24 History Citalopram Hydrobromide [CeleXA] 20 mg PO DAILY 01/05/24 01/19/24 History Ibuprofen [Advil] 400 mg PO BID 01/05/24 01/19/24 History Multivit-Min/FA/Lycopen/Lutein 1 tab PO DAILY 01/05/24 01/19/24 History [Centrum Silver Tablet] Omeprazole 20 mg PO DAILY 01/05/24 01/19/24 History Vitamin D3/Vitamin K2 (Mk4) 1 tab PO DAILY 01/05/24 01/19/24 History [Vitamin K2 Plus D3 Tablet] Losartan [Cozaar] 50 mg PO DAILY #30 tab 01/08/24 01/19/24 Rx amLODIPine [Norvasc] 10 mg PO DAILY #30 tab 01/08/24 01/19/24 Rx Allergies Allergy/AdvReac Type Severity Reaction Status Date / Time No Known Allergies Allergy Verified 01/19/24 10:43 Physical Exam Vitals: Vital Signs Temp Pulse Resp BP Pulse Ox 01/20/24 04:54 98.2 F 88 16 168/82 96 01/20/24 03:06 98.3 F 92 20 185/92 96 01/20/24 00:00 85 20 185/103 95 01/19/24 16:21 20 01/19/24 15:02 81 16 154/94 94 L 01/19/24 14:21 98.6 F 81 16 156/100 94 L 01/19/24 13:25 85 17 144/93 94 L 01/19/24 12:15 97.9 F 86 16 145/87 95 01/19/24 10:07 98.4 F 82 18 174/93 96 01/19/24 08:13 98.4 F 81 17 169/93 95 Results CBC & Chem 7: 01/20/24 10:44 01/21/24 06:01 Labs: Abnormal Lab Results - Last 24 Hours (Table) 01/19/24 01/19/24 01/19/24 Range/Units 08:32 08:32 12:30 Plt Count 466 H (150-450) k/uL Lymphocytes # 0.9 L (1.0-4.8) k/uL Sodium 117 L* 120 L (137-145) mmol/L Potassium 3.2 L 2.8 L (3.5-5.1) mmol/L Chloride 80 L 83 L (98-107) mmol/L Creatinine 0.51 L (0.52-1.04) mg/dL Glucose 133 H 132 H (74-99) mg/dL Urine Osmolality (400-1100) mOsm/kg Ur Random Sodium (40-220) mmol/L 01/19/24 01/19/24 Range/Units 13:15 13:15 Plt Count (150-450) k/uL Lymphocytes # (1.0-4.8) k/uL Sodium (137-145) mmol/L Potassium (3.5-5.1) mmol/L Chloride (98-107) mmol/L Creatinine (0.52-1.04) mg/dL Glucose (74-99) mg/dL Urine Osmolality 183 L (400-1100) mOsm/kg Ur Random Sodium 21 L (40-220) mmol/L
--- NOTE | 2024-01-20 11:31 | P.NPCON ---
History of Present Illness - Reason for Consult hyponatremia - History of Present Illness patient is a 78-year-old female with history of hypertension and gastroesophageal reflux disease was admitted to the hospital with complaints of increased weakness and dizziness. Her blood pressure was significantly elevated at home for about 2 days. Patient denied any history of nausea vomiting or diarrhea. No diuretics noted on home med list. Patient however does take NSAIDs, ibuprofen. Complaining of constipation and has had some difficulty in passing urine. Patient also admits to excessive water intake. Urine osmolality 183 and random urine sodium at 21 serum sodium was 117 on admission and improved to 120 last night with normal saline. Serum sodium increased to 125 today. Review of Systems as per HPI Past Medical History Past Medical History: GERD/Reflux, Hypertension, Osteoarthritis (OA) Additional Past Medical History / Comment(s): hx of dysphagia History of Any Multi-Drug Resistant Organisms: None Reported Past Surgical History: Hysterectomy, Orthopedic Surgery Additional Past Surgical History / Comment(s): Colonoscopy, egd with dilation Past Anesthesia/Blood Transfusion Reactions: Previous Problems w/ Anesthesia Additional Past Anesthesia/Blood Transfusion Reaction / Comment(s): states "my B/P went high after my EGD" Past Psychological History: Anxiety Smoking Status: Former smoker Past Alcohol Use History: Rare Past Drug Use History: None Reported - Past Family History Father Family Medical History: Cancer Additional Family Medical History / Comment(s): Prostate CA Medications and Allergies Home Medications Medication Instructions Recorded Confirmed Type Cyanocobalamin [Vitamin B-12] 500 mcg PO DAILY 05/15/22 01/19/24 History Citalopram Hydrobromide [CeleXA] 20 mg PO DAILY 01/05/24 01/19/24 History Ibuprofen [Advil] 400 mg PO BID 01/05/24 01/19/24 History Multivit-Min/FA/Lycopen/Lutein 1 tab PO DAILY 01/05/24 01/19/24 History [Centrum Silver Tablet] Omeprazole 20 mg PO DAILY 01/05/24 01/19/24 History Vitamin D3/Vitamin K2 (Mk4) 1 tab PO DAILY 01/05/24 01/19/24 History [Vitamin K2 Plus D3 Tablet] Losartan [Cozaar] 50 mg PO DAILY #30 tab 01/08/24 01/19/24 Rx amLODIPine [Norvasc] 10 mg PO DAILY #30 tab 01/08/24 01/19/24 Rx Allergies Allergy/AdvReac Type Severity Reaction Status Date / Time No Known Allergies Allergy Verified 01/19/24 10:43 Physical Exam Vitals: Vital Signs Temp Pulse Resp BP Pulse Ox 01/20/24 10:45 85 20 152/74 95 01/20/24 08:21 84 16 172/94 94 L 01/20/24 04:54 98.2 F 88 16 168/82 96 01/20/24 03:06 98.3 F 92 20 185/92 96 01/20/24 00:00 85 20 185/103 95 01/19/24 16:21 20 01/19/24 15:02 81 16 154/94 94 L 01/19/24 14:21 98.6 F 81 16 156/100 94 L 01/19/24 13:25 85 17 144/93 94 L 01/19/24 12:15 97.9 F 86 16 145/87 95 patient is awake, comfortable, no acute distress. Examination of the heart S1 and S2 Examination of the lungs bilateral breath sounds are heard Abdomen is soft nontender Examination of lower extremities shows no significant edema [employer] exam grossly intact Results - Lab Results Most recent lab results Calcium 8.9 mg/dL (8.4-10.2) 01/20/24 10:44 Magnesium 1.9 mg/dL (1.6-2.3) 01/20/24 10:44 01/20/24 10:44 01/20/24 10:44 Assessment and Plan Assessment: 1. Hyponatremia currently euvolemic most likely associated with excessive free water intake. Urine osmolality 183. Serum sodium has improved with normal saline. I will continue with the saline for now. 2. Hypertension, uncontrolled, increase Cozaar. Continue with Norvasc. 3. Hypokalemia, status post replacement. I would've expected the serum potassium to be elevated given the fact that patient is maintained on Cozaar and NSAIDs. Given the uncontrolled hypertension I will obtain workup for hyperald osteronism. 4. Gastroesophageal reflux disease maintained on omeprazole which patient has not been taking recently. 5. Constipation Plan: check bladder scan and rule out urine retention. Continue with normal saline Increase Cozaar to 50 mg twice a day Add Colace for constipation. Repeat labs in a.m. Check aldosterone and renin levels. Add Aldactone after above labs are drawn. Thank you for the consultation. We will continue to follow the patient with you during her hospitalization.
[2024-01-20] MEDS: ONDANSETRON 4 MG/2 ML VIAL IVP PRN (13:03)
[2024-01-20 15:34] LABS: Glucose,Whole Blood 123 mg/dL (70-110)
[2024-01-20] MEDS: ACETAMINOPHEN TAB 325 MG TAB PO PRN (15:44)
[2024-01-20 18:30] LABS: Potassium 4.5 mmol/L (3.5-5.1)
[2024-01-20] MEDS: MELATONIN 5 MG TABLET PO SCH (20:24)
[2024-01-20] MEDS: HEPARIN SODIUM,PORCINE 5,000 UNIT/ML 1 ML VIAL SQ SCH (20:24)
[2024-01-20] MEDS: HYDROcodone/APAP 5-325MG 1 EACH TAB PO PRN (20:24)
[2024-01-20] MEDS ORDERED: CITALOPRAM HYDROBROMIDE 20 MG TAB PO SCH (21:00)
[2024-01-21 01:44] LABS: Potassium 4.4 mmol/L (3.5-5.1)
[2024-01-21] MEDS: PANTOPRAZOLE 40 MG TABLET PO SCH (06:24)
[2024-01-21 06:30] LABS: Potassium 4.2 mmol/L (3.5-5.1)
[2024-01-21] MEDS: CHOLECALCIFEROL 125 MCG (5000 IU) TABLET PO SCH (11:33)
[2024-01-21] MEDS: TOLVAPTAN 15 MG TABLET PO ONE (11:33)
[2024-01-21] MEDS: CYANOCOBALAMIN 500 MCG TAB PO SCH (11:33)
[2024-01-21] MEDS: LEVOTHYROXINE 25 MCG TAB PO SCH (11:33)
--- NOTE | 2024-01-21 11:59 | P.PN ---
Subjective Patient is seen for follow-up for hyponatremia. Serum sodium improved from 117 on admission to about 127 with normal saline and it has been staying at 127 since yesterday without further improvement.. Urine osmolality at 183 and random urine sodium 21. Blood pressure has been elevated. Objective - Vital Signs Vital signs: Vital Signs Temp 96.7 F L 01/21/24 04:00 Pulse 74 01/21/24 04:00 Resp 14 01/21/24 04:00 BP 156/142 01/21/24 04:00 Pulse Ox 98 01/20/24 14:00 FiO2 Intake & Output 01/20/24 01/21/24 01/21/24 18:59 06:59 18:59 Intake Total 975 1275 Output Total 400 650 250 Balance 575 -650 1025 Weight 75.296 kg 78.8 kg Intake: IV 600 Sodium Chloride 0.9% 1, 600 000 ml @ 75 mls/hr IV . [id number] ONE Rx#:[id number] Intake, IV Titration 225 1275 Amount 0.9% NaCl with KCl 20 Meq 225 1275 /l 1,000 ml @ 75 mls/hr IV .[id number] [facility] Rx#: [id number] Oral 150 Output: Urine 400 650 250 Other: Voiding Method Toilet Toilet Toilet - Exam patient is awake, comfortable, no acute distress. Examination of the heart S1 and S2 Examination of the lungs bilateral breath sounds are heard Abdomen is soft nontender Examination of lower extremities shows no significant edema [employer]OL[employer] exam grossly intact - Labs CBC & Chem 7: 01/20/24 10:44 01/21/24 06:01 Labs: Abnormal Lab Results - Last 24 Hours (Table) 01/20/24 01/20/24 01/20/24 Range/Units 11:57 15:32 17:53 Sodium 125 L 127 L (137-145) mmol/L Chloride 95 L 97 L (98-107) mmol/L POC Glucose (mg/dL) 123 H (70-110) mg/dL TSH 0.165 L (0.465-4.680) mIU/L 01/21/24 01/21/24 Range/Units 01:00 06:01 Sodium 127 L 127 L (137-145) mmol/L Chloride (98-107) mmol/L POC Glucose (mg/dL) (70-110) mg/dL TSH (0.465-4.680) mIU/L Assessment and Plan Assessment: 1. Hyponatremia currently euvolemic most likely associated with excessive free water intake. Urine osmolality 183. Serum sodium has improved with normal saline initially but has not improved any further. Blood pressure is elevated. I will discontinue the saline. 2. Hypertension, uncontrolled, increased Cozaar. Continue with Norvasc. 3. Hypokalemia, status post replacement. I would've expected the serum potassium to be elevated given the fact that patient is maintained on Cozaar and NSAIDs. Given the uncontrolled hypertension I will obtain workup for hyperaldosteronism. 4. Gastroesophageal reflux disease maintained on omeprazole which patient has not been taking recently. 5. Constipation Plan: DC normal saline Samsca 15 mg 1 Repeat sodium this evening Follow-up on aldosterone and renin levels Continue with Cozaar add Aldactone
[2024-01-21] MEDS: SPIRONOLACTONE 25 MG TAB PO SCH (12:09)
--- NOTE | 2024-01-21 15:20 | P.PN ---
Subjective Progress Note Date: 01/21/24 Interval History: History of present illness; 78-year-old female presents to the emergency department with feelings of dizziness. Patient's past medical history is significant for hypertension. She states that she woke up in the morning on 01/18 and felt dizzy, states it felt like her vertigo that she has had previously. Patient states that she felt as though she was going to fall over, however never feeling like she was going to pass out. She denies any chest pain, difficulty breathing or shortness of breath. States that while laying in the bed she does not have feelings of dizziness however when she gets up she becomes dizzy. She was in the emergency department most recently a week and a half ago, 01/06/2024, with similar complaints of dizziness. At that time her sodium was 126. Patient's initial labs in the emergency department on 01/18 showed a sodium of 117, potassium 3.2, chloride of 80. In the emergency department patient was given 40 mEq of potassium chloride ER, and a further 2 doses of 20 mEq potassium chloride ER most recent of which at 6:48 AM. Additionally, she had received 1.5 L of normal saline, currently receiving 75 mL/h of normal saline with KCl 20 mEq. Patient has remained afebrile, while saturating in the mid 90s on room air, her blood pressure has been elevated since arrival. On arrival her blood pressure was 169/93 and has remained elevated most recently reading 160/82 at 4:54 AM. Home medications of Norvasc 10 mg daily and Losartan 50 mg daily have been restarted, additionally Lopressor 5 mg IV every 6 hours if the systolic blood pressure is greater than 160 has been added. Additionally patient complains of some back pain from catching herself while falling earlier this week, and some Tylenol will be added to assist. Additionally patient has been taking 20 mg daily of Celexa, which has been discontinued. Labs done today 01/19 showed sodium of 125 and potassium of 4.2. Nephrology has been consulted. Initial lab work done in the ER showed unremarkable CBC except for a platelet count of 466, sodium of 117, potassium 3.2, chloride 80, creatinine 0.52, glucose 133 Follow-up CMP 4 hours later showed a sodium of 120, potassium 2.8, chloride 83, chloride 0.51, glucose 132. Additionally urine osmolality 183 and random urine sodium 21. EKG done in the ER showed heart rate of 79, sinus rhythm with possible left atrial enlargement, possible history of septal myocardial infarction, left anterior fascicular block and left ventricular hypertrophy Chest x-ray done in the ER showed no acute cardiopulmonary disease process. 01/21/24 Patient was seen and examined today. No issues overnight. Patient feeling better today. Patient received IV fluids initially, which led to improvement in sodium. Received 1 dose of tolvaptan per nephrology. IV fluids on hold now. Nephrology ordered aldosterone and renin levels, added Aldactone, monitor sodium. TSH is low, patient asymptomatic, doubt hyperthyroidism. Will monitor. Assessment and plan: Hyponatremia possibly secondary to dehydration or drug-induced SIADH Patient sodium on arrival was 117, 120 on recheck 4 hours later Patient received 500 mL bolus of normal saline, and has received an additional 1000 mL Patient currently on 75 mL/h normal saline with 20 mEq of KCl Labs done today showed a sodium of 125 Patient had been taking Celexa, which could potentially cause SIADH, has been discontinued Patient serum osmolality pending, urine osmolality was 183, random urine sodium was 21 Will continue to monitor serum sodium every 6 hours until tomorrow morning --- Nephrology consulted, received tolvaptan. Increased Cozaar dose, aldosterone and renin levels ordered, added Aldactone. #Hypokalemia--resolved Patient's potassium 3.2 on arrival, 2.8 on recheck 4 hours later Patient has received a total of 80 mEq of potassium chloride Monitor sodium, plan as above. #Hypertension Patient states she has been on amlodipine 10 mg daily for about a month Prior to that she never took any medications for high blood pressure Continue patient's home medication of Norvasc 10 mg daily and losartan -- Nephrology increase losartan dose to 50 mg twice daily. Low TSH: Asymptomatic TSH is low, likely sick euthyroid Patient asymptomatic. Doubt hyperthyroidism Monitor DVT prophylaxis: Subcutaneous heparin PHYSICAL EXAMINATION: GENERAL: The patient is A&O x3, NAD HEENT: EOMI, Sclerae anicteric, Moist Mucous membranes Neck: Supple, Non tender, No JVD CARDIOVASCULAR: S1, S2 present. No murmurs, rubs, or gallops. PULMONARY: Equal breath souds B/L, No wheezing, No crackles. ABDOMEN: Soft, nontender, nondistended, normoactive bowel sounds. No guarding or rebound tenderness. MUSCULOSKELETAL: No edema, No cyanosis. No clubbing. Normal ROM. Intact periphe ral pulses. Skin; Warm. No rash. REVIEW OF SYSTEMS: CONSTITUTIONAL: No fever or chills. CARDIOVASCULAR: No chest pain, palpitations or syncope. PULMONARY: No shortness of breath, no cough, sore throat. GASTROINTESTINAL: No nausea, vomiting, diarrhea, abdominal pain. : No Dysuria, urgency, frequency. Extremities: No edema. NEUROLOGICAL: No headaches, no weakness, or numbness Dictation was produced using [employer] dictation software. please excuse any grammatical, word or spelling errors. Objective - Vital Signs Vital signs: Vital Signs Temp 96.7 F L 01/21/24 10:00 Pulse 83 01/21/24 12:00 Resp 18 01/21/24 12:00 BP 148/99 01/21/24 12:00 Pulse Ox 95 01/21/24 10:00 FiO2 Intake & Output 01/20/24 01/21/24 01/21/24 18:59 06:59 18:59 Intake Total 975 1525 Output Total 400 650 750 Balance 575 -650 775 Weight 75.296 kg 78.8 kg Intake: IV 600 Sodium Chloride 0.9% 1, 600 000 ml @ 75 mls/hr IV . [id number] [facility] Rx#:[id number] Intake, IV Titration 225 1275 Amount 0.9% NaCl with KCl 20 Meq 225 1275 /l 1,000 ml @ 75 mls/hr IV .[id number] [facility] Rx#: [id number] Oral 150 250 Output: Urine 400 650 750 Other: Voiding Method Toilet Toilet Toilet - Labs CBC & Chem 7: 01/20/24 10:44 01/21/24 06:01 Labs: Abnormal Lab Results - Last 24 Hours (Table) 01/20/24 01/20/24 01/20/24 Range/Units 10:44 15:32 17:53 Sodium 127 L (137-145) mmol/L Chloride 97 L (98-107) mmol/L POC Glucose (mg/dL) 123 H (70-110) mg/dL Osmolality 264 L (275-295) mOsm/kg 01/21/24 01/21/24 Range/Units 01:00 06:01 Sodium 127 L 127 L (137-145) mmol/L Chloride (98-107) mmol/L POC Glucose (mg/dL) (70-110) mg/dL Osmolality (275-295) mOsm/kg
[2024-01-21] MEDS: METOPROLOL TARTRATE 5 MG/5 ML VIAL IVP PRN (16:12)
[2024-01-21] MEDS: DOCUSATE 100 MG CAP PO PRN (21:18)
[2024-01-22 03:00] VITALS: BP 169/110; PULSE 83; RESP 18; TEMP 97.6
[2024-01-22] MEDS ORDERED: LOSARTAN 50 MG TAB ONE ×2 (08:17→21:01)
[2024-01-22] MEDS ORDERED: SPIRONOLACTONE 25 MG TAB ONE (08:17)
[2024-01-22] MEDS ORDERED: amLODIPine 10 MG TAB ONE (08:18)
[2024-01-22] MEDS ORDERED: CYANOCOBALAMIN 500 MCG TAB ONE (08:18)
[2024-01-22] MEDS ORDERED: CHOLECALCIFEROL 125 MCG (5000 IU) TABLET ONE (08:18)
[2024-01-22] MEDS ORDERED: HEPARIN SODIUM,PORCINE 5,000 UNIT/ML 1 ML VIAL ONE ×2 (08:18→21:01)
[2024-01-22] MEDS ORDERED: HYDROcodone/APAP 5-325MG 1 EACH TAB ONE ×3 (11:37→23:31)
[2024-01-22] MEDS ORDERED: ACETAMINOPHEN TAB 325 MG TAB ONE (14:11)
[2024-01-22] MEDS ORDERED: MELATONIN 5 MG TABLET ONE (21:01)
[2024-01-23] MEDS ORDERED: PANTOPRAZOLE 40 MG TABLET PO ONE (06:46)
[2024-01-23] MEDS ORDERED: HYDROcodone/APAP 5-325MG 1 EACH TAB ONE ×3 (06:46→20:22)
[2024-01-23] MEDS ORDERED: LOSARTAN 50 MG TAB ONE ×2 (08:21→20:22)
[2024-01-23] MEDS ORDERED: HEPARIN SODIUM,PORCINE 5,000 UNIT/ML 1 ML VIAL ONE ×2 (08:21→20:23)
[2024-01-23] MEDS ORDERED: SPIRONOLACTONE 25 MG TAB ONE (08:21)
[2024-01-23] MEDS ORDERED: CHOLECALCIFEROL 125 MCG (5000 IU) TABLET ONE (08:21)
[2024-01-23] MEDS ORDERED: amLODIPine 10 MG TAB ONE (08:21)
[2024-01-23] MEDS ORDERED: CYANOCOBALAMIN 500 MCG TAB ONE (08:21)
[2024-01-23] MEDS ORDERED: MELATONIN 5 MG TABLET ONE (20:23)
[2024-01-24] MEDS ORDERED: HYDROcodone/APAP 5-325MG 1 EACH TAB ONE ×2 (03:40→23:28)
[2024-01-24] MEDS ORDERED: PANTOPRAZOLE 40 MG TABLET PO ONE (07:50)
[2024-01-24] MEDS ORDERED: LOSARTAN 50 MG TAB ONE ×2 (07:50→20:34)
[2024-01-24] MEDS ORDERED: SPIRONOLACTONE 25 MG TAB ONE (07:50)
[2024-01-24] MEDS ORDERED: HEPARIN SODIUM,PORCINE 5,000 UNIT/ML 1 ML VIAL ONE ×2 (07:50→20:34)
[2024-01-24] MEDS ORDERED: CYANOCOBALAMIN 500 MCG TAB ONE (07:51)
[2024-01-24] MEDS ORDERED: CHOLECALCIFEROL 125 MCG (5000 IU) TABLET ONE (07:51)
[2024-01-24] MEDS ORDERED: amLODIPine 10 MG TAB ONE (07:51)
[2024-01-24] MEDS ORDERED: MELATONIN 5 MG TABLET ONE (20:34)
[2024-01-25] MEDS ORDERED: PANTOPRAZOLE 40 MG TABLET PO ONE (06:28)
[2024-01-25] MEDS ORDERED: CYANOCOBALAMIN 500 MCG TAB ONE (08:40)
[2024-01-25] MEDS ORDERED: HEPARIN SODIUM,PORCINE 5,000 UNIT/ML 1 ML VIAL ONE (08:40)
[2024-01-25] MEDS ORDERED: CHOLECALCIFEROL 125 MCG (5000 IU) TABLET ONE (08:40)
[2024-01-25] MEDS ORDERED: LOSARTAN 50 MG TAB ONE (08:40)
[2024-01-25] MEDS ORDERED: DOCUSATE 100 MG CAP ONE (08:40)
[2024-01-25] MEDS ORDERED: SPIRONOLACTONE 25 MG TAB ONE (08:40)
[2024-01-25] MEDS ORDERED: amLODIPine 10 MG TAB ONE (08:41)
[2024-02-14 11:02] LABS: African American GFR (CKD) >90 (>60 ml/min/1.73 sqM); Anion Gap 10 mmol/L; Blood Urea Nitrogen 12 mg/dL (7-17); Carbon Dioxide 18 mmol/L (22-30); Chloride 97 mmol/L (98-107); Glucose 193 mg/dL (74-99); Non-African American GFR(CKD) 90 (>60 ml/min/1.73 sqM); Potassium 4.1 mmol/L (3.5-5.1); Sodium 125 mmol/L (137-145)
[2024-02-14 11:03] LABS: Calcium 9.2 mg/dL (8.4-10.2); HCT 40.5 % (34.0-46.0); HGB 13.3 gm/dL (11.4-16.0); RBC 4.17 m/uL (3.80-5.40); T4, Free (Free Thyroxine) 2.19 ng/dL (0.78-2.19); WBC 8.9 k/uL (3.8-10.6)
[2024-02-14 11:04] LABS: Basophils % (A) 0 %; Eosinophils # (A) 0.1 k/uL (0-0.7); Eosinophils % (A) 1 %; Lymphocytes % (A) 11 %; Monocytes # (A) 0.4 k/uL (0-1.0); Monocytes % (A) 4 %; Neutrophils # (A) 7.3 k/uL (1.3-7.7); Neutrophils % (A) 82 %; Platelet Count 400 k/uL (150-450); RDW 13.1 % (11.5-15.5)
== END 2024-01-25 16:17 | disposition home or self-care (01) | DRG 645 ==
LOC: EC 08:10 → 3SCARD 10:15 → 2SICU 01-20 14:03 → 3SCARD 01-21 17:37
PROVIDERS: ADMIT Family Medicine; ATTEND Family Medicine
DX: E22.2 Syndrome of inappropriate secretion of antidiuretic hormone (principal); E07.81 Sick-euthyroid syndrome; E87.6 Hypokalemia; E86.0 Dehydration; F41.9 Anxiety disorder, unspecified; K21.9 Gastro-esophageal reflux disease without esophagitis; I10 Essential (primary) hypertension; I25.2 Old myocardial infarction; K59.00 Constipation, unspecified; M19.90 Unspecified osteoarthritis, unspecified site; Z79.899 Other long term (current) drug therapy; Z87.891 Personal history of nicotine dependence; Z90.710 Acquired absence of both cervix and uterus; Z87.19 Personal history of other diseases of the digestive system
CPT/HCPCS: 36415; 51798; 71046; 80048; 80051; 80053; 82088; 83735; 83930; 83935; 84244; 84295; 84300; 84439; 84443; 85025; 93005; 96361; 96375; 99285

== ENCOUNTER 2024-11-27 18:07 | Emergency (ER) | payer MEDICARE ==
--- NOTE | 2024-11-27 18:41 | ED ---
General Adult HPI - General Source: patient, RN notes reviewed Mode of arrival: EMS Limitations: no limitations <Alyson Grimm - Last Filed: 11/27/24 18:40> - General Source: patient, RN notes reviewed Mode of arrival: EMS Limitations: no limitations <Kimmy Giron - Last Filed: 11/29/24 03:13> - General Chief complaint: Extremity Injury, Upper Stated complaint: R Hand Injury Time Seen by Provider: 11/27/24 18:20 - History of Present Illness Initial comments: quick note- 78-year-old female presents emergency department from nursing facility with bruising of her right wrist and hand. Patient states that she has mild pain however does not remember an injury. States that she woke up with the bruising. (Alyson rGimm) 78-year-old female presented to ER via EMS for evaluation of right hand bruising and swelling. Patient states she woke up this morning noticing pain, swelling and bruising to her right 1st and 2nd metacarpals. She states throughout the d ay pain persisted which prompted her to come to the emergency department. She denies any known injuries or falls. She denies history of gout. She denies any fevers, chills, paresthesias to right extremity. She reports limited range of motion of right first digit given this pain. She has taken Tylenol without relief of pain. Patient denies any elbow, shoulder or neck pain. (Kimmy Macedo) - Related Data Home Medications Medication Instructions Recorded Confirmed Cyanocobalamin [Vitamin B-12] 500 mcg PO DAILY 05/15/22 01/19/24 Citalopram Hydrobromide [CeleXA] 20 mg PO DAILY 01/05/24 01/19/24 Ibuprofen [Advil] 400 mg PO BID 01/05/24 01/19/24 Multivit-Min/FA/Lycopen/Lutein 1 tab PO DAILY 01/05/24 01/19/24 [Centrum Silver Tablet] Omeprazole 20 mg PO DAILY 01/05/24 01/19/24 Vitamin D3/Vitamin K2 (Mk4) 1 tab PO DAILY 01/05/24 01/19/24 [Vitamin K2 Plus D3 Tablet] Previous Rx's Medication Instructions Recorded Losartan [Cozaar] 50 mg PO DAILY #30 tab 01/08/24 amLODIPine [Norvasc] 10 mg PO DAILY #30 tab 01/08/24 Allergies Allergy/AdvReac Type Severity Reaction Status Date / Time No Known Allergies Allergy Verified 01/19/24 10:43 Review of Systems ROS Other: All systems not noted in ROS Statement are negative. <Alyson Grimm - Last Filed: 11/27/24 18:40> ROS Other: All systems not noted in ROS Statement are negative. <Kimmy Giron - Last Filed: 11/29/24 03:13> ROS Statement: Those systems with pertinent positive or pertinent negative responses have been documented in the HPI. Past Medical History Past Medical History: GERD/Reflux, Osteoarthritis (OA) Additional Past Medical History / Comment(s): hx of dysphagia History of Any Multi-Drug Resistant Organisms: None Reported Past Surgical History: Hysterectomy, Orthopedic Surgery Additional Past Surgical History / Comment(s): Colonoscopy, egd with dilation Past Anesthesia/Blood Transfusion Reactions: Previous Problems w/ Anesthesia Additional Past Anesthesia/Blood Transfusion Reaction / Comment(s): states "my B/P went high after my EGD" Past Psychological History: Anxiety Smoking Status: Former smoker Past Alcohol Use History: Rare Past Drug Use History: None Reported - Past Family History Father Family Medical History: Cancer Additional Family Medical History / Comment(s): Prostate CA <Alyson Grimm - Last Filed: 11/27/24 18:40> General Exam Limitations: no limitations <Alyson Grimm - Last Filed: 11/27/24 18:40> Limitations: no limitations General appearance: alert, in no apparent distress Respiratory exam: Present: normal lung sounds bilaterally. Absent: respiratory distress, wheezes, rales, rhonchi, stridor Cardiovascular Exam: Present: regular rate, normal rhythm, normal heart sounds. Absent: systolic murmur, diastolic murmur, rubs, gallop, clicks Extremities exam: Present: tenderness (Right 1st and 2nd metacarpal and anatomical snuffbox. There is also overlying edema and contusion), normal capillary refill (2+ right radial pulse.), other (Full active range of motion limited given pain.) Neurological exam: Present: alert, oriented X3, CN II-XII intact Skin exam: Present: warm, dry, intact, normal color. Absent: rash <Kimmy Giron - Last Filed: 11/29/24 03:13> - General Exam Comments Initial Comments: Visual Physical Exam Vital signs reviewed General: Well-appearing, nontoxic, no acute distress. Head: Normocephalic, atraumatic Eyes: PERRLA, EOMI ENT: Airway patent Chest: Nonlabored breathing Skin: No visual rash, normal skin tone Neuro: Alert and oriented 3 Musculoskeletal: No gross abnormalities (Alyson Grimm) Course Vital Signs 11/27/24 11/27/24 18:31 23:07 Temperature 98.9 F 98.0 F Pulse Rate 88 66 Respiratory 20 18 Rate Blood Pressure 112/77 108/74 O2 Sat by Pulse 94 L 99 Oximetry Procedures - Orthopedic Splinting/Casting Injury #1 Side: right Upper Extremity Injury Location: hand Upper Extremity Immobilizer: thumb spica <Kimmy Giron - Last Filed: 11/29/24 03:13> Medical Decision Making <Alyson Grimm - Last Filed: 11/27/24 18:40> - Radiology Data Radiology results: report reviewed, image reviewed <Kimmy Giron - Last Filed: 11/29/24 03:13> - Medical Decision Making I completed the quick note portion of this chart signed Alyson Grimm PA-C (Alyson Grimm) Was pt. sent in by a medical professional or institution ([facility], [facility], urgent care, hospital, or [facility]...) When possible be specific @ -No Did you speak to anyone other than the patient for history (EMS, parent, family, police, friend...)? What history was obtained from this source @ -No Did you review nursing and triage notes (agree or disagree)? Why? @ -I reviewed and agree with nursing and triage notes Were old charts reviewed (outside hosp., previous admission, EMS record, old EKG, old radiological studies, urgent care reports/EKG's, [facility] records)? Report findings @ -No old charts were reviewed Differential Diagnosis (chest pain, altered mental status, abdominal pain women, abdominal pain men, vaginal bleeding, weakness, fever, dyspnea, syncope, headache, dizziness, GI bleed, back pain, seizure, CVA, palpatations, mental health, musculoskeletal)? @ -Differential Musculoskeletal: Muscular strain, contusion, ligament sprain, fracture, arthritis, septic arthritis, bursitis, cellulitis, muscle spasm, nerve compression, DVT, arterial occlusion, herpes zoster, electrolyte abnormality, tumor.... This is not meant to be in all inclusive list EKG interpreted by me (3pts min.). @ -None done X-rays interpreted by me (1pt min.). @ -Right hand and wrist x-rays interpreted me negative for acute fractures or dislocations. CT interpreted by me (1pt min.). @ -None done U/S interpreted by me (1pt. min.). @ -None done What testing was considered but not performed or refused? (CT, X-rays, U/S, labs)? Why? @ -None What meds were considered but not given or refused? Why? @ -None Did you discuss the management of the patient with other professionals (professionals i.e. , PA, [facility], lab, RT, psych nurse, psych social worker, packing and shipping clerk, teacher, registration officer, employment case manager)? Give summary @ -No Was smoking cessation discussed for >3mins.? @ -No Was critical care preformed (if so, how long)? @ -No Were there social determinants of health that impacted care today? How? (Homelessness, low income, unemployed, alcoholism, drug addiction, transportation, low edu. Level, literacy, decrease access to med. care, [facility], rehab)? @ -No Was there de-escalation of care discussed even if they declined (Discuss DNR or withdrawal of care, Hospice)? DNR status @ -No What co-morbidities impacted this encounter? (DM, HTN, Smoking, COPD, CAD, Cancer, CVA, ARF, Chemo, Hep., AIDS, mental health diagnosis, sleep apnea, morbid obesity)? @ -None Was patient admitted / discharged? Hospital course, mention meds given and route, prescriptions, significant lab abnormalities, going to OR and other pertinent info. @ -Discharge. 78-year-old female presented the ER for evaluation of right hand pain and bruising. Vital signs stable. Patient is neurovascular intact. Exam remarkable for right 1st and 2nd metacarpal tenderss, edema with overlying contusion. Anatomical snuffbox tenderness present. X-rays negative for acute fractures or dislocations. Patient provided with ibuprofen for pain control in the ER. Given pain and snuffbox tenderness patient will be placed in a thumb spica splint, see note above. Strict return parameters discussed. Conservative treatment options discussed. Patient discharged in stable condition with follow-up to PCP and orthopedics, referral given. Patient verbally expressed understanding and agreement with care plan. Case discussed with ED attending, Dr. Estevez. Undiagnosed new problem with uncertain prognosis? @ -No Drug Therapy requiring intensive monitoring for toxicity (Heparin, Nitro, Insulin, Cardizem)? @ -No Were any procedures done? @ -Yes Diagnosis/symptom? @ -Hand pain Acute, or Chronic, or Acute on Chronic? @ -Acute Uncomplicated (without systemic symptoms) or Complicated (systemic symptoms)? @ -Uncomplicated Side effects of treatment? @ -No Exacerbation, Progression, or Severe Exacerbation? @ -No Poses a threat to life or bodily function? How? (Chest pain, [place], [place], pneumonia, PE, COPD, DKA, ARF, appy, cholecystitis, CVA, Diverticulitis, Homicidal, Suicidal, threat to staff... and all critical care pts) @ -No (Kimmy Giron) Disposition <Alyson Grimm - Last Filed: 11/27/24 18:40> Is patient prescribed a controlled substance at d/c from ED?: No Time of Disposition: 23:07 <Kimmy Giron - Last Filed: 11/29/24 03:13> Clinical Impression: Contusion, Hand pain Disposition: HOME SELF-CARE Condition: Stable Additional Instructions: Follow-up closely with PCP and orthopedics for reevaluation. Continue taking [id number] ibuprofen and Tylenol for pain control. Return to the ER for any new or worsening concerns. Referrals: Mellissa Evans DO [Primary Care Provider] - 1-2 days Yoni Rollins MD [STAFF PHYSICIAN] - 1-2 days
--- NOTE | 2024-11-27 22:44 | XR ---
EXAMINATION TYPE: XR hand complete RT, XR wrist complete RT DATE OF EXAM: 11/27/2024 6:50 PM CLINICAL INDICATION:Female, 78 years old with history of pain swelling bruisiing; PHH, pain COMPARISON: None TECHNIQUE: XR hand complete RT, XR wrist complete RT Frontal, lateral and oblique views were obtained . FINDINGS: Normal alignment of the visualized joints. No acute osseous pathology is identified. Soft tissue swelling is suggested between the first and second digits. There is degenerative changes seen of the right hand and right wrist. IMPRESSION: No acute osseous pathology. Multifocal osteoarthrosis throughout the joints of the hand. Mild soft tissue swelling between the first and second digits. [facility], , 11/27/2024 10:42 PM
[2024-11-27 23:10] VITALS: BP 108/74; PULSE 66; RESP 18; TEMP 98
[2024-11-27] MEDS: IBUPROFEN 600 MG TAB PO STA (23:13)
== END 2024-11-27 23:18 | disposition home or self-care (01) ==
LOC: EC 18:07
DX: S60.211A Contusion of right wrist, initial encounter (principal); Z87.891 Personal history of nicotine dependence; X58.XXXA Exposure to other specified factors, initial encounter
CPT/HCPCS: 29125; 99284